=== PATIENT | male | born 1955 | race Asian ===

== ENCOUNTER 2017-11-08 12:56 | Inpatient (IN) | payer OTHER ==
[~2017-11-08] VITALS: Ht 182.9 cm; Wt 81.6 kg
[2017-11-08] VITALS (9 sets, daily range): BP systolic 119–162
--- NOTE | 2017-11-08 13:05 | NUR ---
BROUGHT BACK TO BED #4 VIA WHEELCHAIR, PLACED IN BED AND TRIAGED. REPORT GIVEN TO JAYDEN
--- NOTE | 2017-11-08 13:07 | NUR ---
ER Dr. Rudolph at bedside examining patient.
--- NOTE | 2017-11-08 13:10 | NUR ---
Pt presents to ER c/o abdominal pain 03/07, vomiting since last night, and gen weakness. Pt denies any chest pain or sob. Pt reports taking "78 units of insulin at noon time because dr prescribed that to me." Pt reports history of HTN, CVA, DM. Pt in no acute respiratory distress, lethargic, AOX4, NKDA.
[2017-11-08] MEDS ORDERED: NACL 0.9% 1,000 ML IV ONE ×2 (13:14→14:30)
[2017-11-08] MEDS ORDERED: NACL 0.9% 1,000 ML IV SCH (13:14)
[2017-11-08] MEDS ORDERED: PROMETHAZINE HCL 25 MG/ML AMP IVP ONE (13:15)
[2017-11-08 13:37] LABS: BASOPHILS % (AUTO) 0.2 % (0.0-2.0); HEMATOCRIT 44.9 % (36-54); HEMOGLOBIN 14.3 g/dL (14.0-18.0); MEAN CORPUSCULAR HEMOGLOBIN 26 pg (27-31); MEAN CORPUSCULAR HGB CONC 32 % (32-36); MEAN CORPUSCULAR VOLUME 82 fL (79.0-98.0); MONOCYTES # (AUTO) 0.3 K/uL (0.0-1.0); MONOCYTES % (AUTO) 3.1 % (1.7-9.3); NEUTROPHILS # (AUTO) 9.5 K/uL (1.8-7.7); PLATELET COUNT (AUTO) 242 K/uL (130-430); RED BLOOD CELL COUNT(AUTO) 5.51 MIL/uL (4.2-6.2); WHITE BLOOD COUNT (AUTO) 10.8 K/uL (4.8-10.8)
--- NOTE | 2017-11-08 13:43 | NUR ---
BS [address] Rudolph.
[2017-11-08 13:52] LABS: PROTHROMBIN TIME 10.4 SECS (9.5-12.5)
--- NOTE | 2017-11-08 13:53 | NUR ---
Pt medicated and toelrated well; will continue to monitor.
[2017-11-08 13:54] LABS: NEUTROPHILS % (AUTO) 87.7 % (40.0-70.0)
[2017-11-08 13:56] LABS: CALCIUM 10.5 mg/dL (8.4-11.0); CREATININE 2.82 mg/dL (0.55-1.30); POTASSIUM 4.5 mmol/L (3.5-5.1)
[2017-11-08 14:01] LABS: TOTAL BILIRUBIN 0.2 mg/dL (0.0-1.0)
[2017-11-08] MEDS ORDERED: CLOPIDOGREL BISULFATE 75 MG TABLET PO ONE (15:00)
[2017-11-08] MEDS ORDERED: ASPIRIN 325 MG TABLET PO ONE (15:00)
[2017-11-08] MEDS ORDERED: IRBE150T48 PO (15:05)
[2017-11-08] MEDS ORDERED: HYDR-4039 PO (15:05)
[2017-11-08] MEDS ORDERED: NIFE60TA83 PO (15:05)
[2017-11-08] MEDS ORDERED: CLOP75TA2 PO (15:05)
[2017-11-08] MEDS ORDERED: ASPI-1063 PO (15:05)
[2017-11-08] MEDS ORDERED: ISOS30TA6 PO (15:05)
--- NOTE | 2017-11-08 15:05 | NUR ---
Medication reconciliation completed with information provided by pt.
--- NOTE | 2017-11-08 15:59 | NUR ---
Pt resting comfortably on gurney, no distress noted, denies any pain at the moment just a little discomfort. VSS, will continue to monitor.
--- NOTE | 2017-11-08 16:45 | NUR ---
Note rene in ED - 11/08/17 at 1712 by [email or web address] Transfer to ICU via ACLS protocol. Licensed nurse present. IV present no signs or symptoms of infiltration.
--- NOTE | 2017-11-08 16:45 | NUR ---
Transfer to ICU via ACLS protocol. Licensed nurse present. IV present no signs or symptoms of infiltration.
--- NOTE | 2017-11-08 16:45 | NUR ---
Note rene in EDM - 11/08/17 at 1712 by [email or web address] Patient will be admitted to care of Dr. Barba. Admitted to ICU unit. Will go to room 7. Belongings list completed. Summary report printed. Report will be given at bedside.
--- NOTE | 2017-11-08 17:00 | NUR ---
RECEIVED PT TO ICU BED 7 VIA REE. PT ALERT AND ORIENTED. STATES PAIN 2-3/10 TO ABD. DENIES NAUSEA AND VOMITING. SR ON MONITOR. HOB UP. VOIDED 300 CC JACOB URINE. WILL CONTINUE TO MONITOR.
[2017-11-08] MEDS ORDERED: PANTOPRAZOLE SODIUM 40 MG/VIAL (PROTONIX) IVP SCH (18:15)
[2017-11-08] MEDS ORDERED: ONDANSETRON HCL 4 MG/2 ML VIAL IVP PRN (18:30)
[2017-11-08] MEDS ORDERED: TEMAZEPAM 15 MG CAPSULE PO PRN (18:30)
[2017-11-08] MEDS ORDERED: DEXTROSE 50% JECT 50 ML DISP.SYRIN IVP PRN (18:30)
--- NOTE | 2017-11-08 18:30 | NUR ---
DR PURVIS IN TO SEE PT. ORDERS LEFT.
[2017-11-08 18:33] LABS: BILIRUBIN,URINE NEGATIVE (NEGATIVE); CLARITY/URINE CLEAR (CLEAR); COLOR,URINE YELLOW (YELLOW); GLUCOSE,URINE TRACE (NEGATIVE); KETONES,URINE NEGATIVE (NEGATIVE); LEUKOCYTE ESTERASE ,URINE NEGATIVE (NEGATIVE); NITRITE, URINE NEGATIVE (NEGATIVE); PH,URINE 7.5 (5.0-8.0); PROTEIN URINE 3+ (NEGATIVE); UROBILINOGEN,URINE 0.2 (0.2-1.0)
[2017-11-08 18:36] LABS: BLOOD, URINE TRACE (NEGATIVE)
[2017-11-08 18:43] LABS: BACTERIA,URINE RARE /HPF (None Seen); MUCUS,URINE None Seen /LPF (None Seen); RBC,URINE 0-3 /HPF (0-3); WBC,URINE NONE SEEN /HPF (0-3)
--- NOTE | 2017-11-08 19:00 | NUR ---
REPORT GIVEN TO ONCOMING SHIFT. VSS. SR ON MONITOR. NO VOMITING. IVF INFUSING AT 300CC/HR. WILL CONTINUE TO MONITOR.
[2017-11-08] MEDS: 0.45% NACL 1,000 ML IV SCH ×2 (19:05→21:38)
--- NOTE | 2017-11-08 19:39 | NUR ---
CALLED CONSULTS FOR DR. DURANT([facility]), DR. HERNANDEZ AND DR. SUAZO.
--- NOTE | 2017-11-08 20:00 | NUR ---
notified with BMP results. no new orders received. Addendum: 11/09/17 at 0513 by Agustin Nieves RN BMP results called to at 0 not 1999.
--- NOTE | 2017-11-08 20:00 | NUR ---
pm shift assessment, pt AAO.denies any abd pain , nausea or vomiting. sinus rhythm on the monitor. Iv 1/2 NS infusing @ 300 ml/h to RT FA with no redness or swelling. SL intact on LT AC .site without redness or swelling. pt took po liquids and tolerated well.
--- NOTE | 2017-11-08 20:15 | NUR ---
called in to check on pt as per consultation order, orders received to do stat BMP and to call her with results.
[2017-11-08 21:00] LABS: CALCIUM 8.5 mg/dL (8.4-11.0); CREATININE 2.48 mg/dL (0.55-1.30); POTASSIUM 4.4 mmol/L (3.5-5.1)
--- NOTE | 2017-11-08 21:00 | NUR ---
came in to check on pt. orders given . IVF rate decreased to 150 ml/h as pt is voiding.sit at the side of bed to void. no complaints voiced.
[2017-11-08] MEDS ORDERED: TAMSULOSIN HCL 0.4 MG CAP ONE (21:17)
[2017-11-08] MEDS: TAMSULOSIN HCL 0.4 MG CAP PO SCH (21:18)
[2017-11-08] MEDS ORDERED: MORPHINE 4 MG/ML INJ. SYRINGE IVP PRN (21:45)
[2017-11-08] MEDS ORDERED: MORPHINE 2 MG/ML INJ. SYRINGE IVP PRN (21:45)
--- NOTE | 2017-11-08 22:59 | NUR ---
PAGED DR. WILL SANTORO FOR LAB RESULTS @ 5478.
[2017-11-09] VITALS (18 sets, daily range): BP systolic 111–154
[2017-11-09] MEDS: 0.45% NACL 1,000 ML IV SCH ×3 (03:03→18:22)
--- NOTE | 2017-11-09 04:00 | NUR ---
sleeping now .no distress noted.
--- NOTE | 2017-11-09 06:00 | NUR ---
voded well.no distress noted. had a good night without any problems.one thing he still has is blurred vision. Addendum: 11/09/17 at 0700 by Agustin Nieves RN voided well.
[2017-11-09 06:45] LABS: BASOPHILS % (AUTO) 0.5 % (0.0-2.0); EOSINOPHILS # (AUTO) 0.2 K/uL (0.0-0.4); HEMATOCRIT 38.8 % (36-54); HEMOGLOBIN 12.7 g/dL (14.0-18.0); LYMPHOCYTES # (AUTO) 1.8 K/uL (1.0-5.5); LYMPHOCYTES % (AUTO) 23.6 % (20.5-51.5); MEAN CORPUSCULAR HEMOGLOBIN 27 pg (27-31); MEAN CORPUSCULAR HGB CONC 33 % (32-36); MEAN CORPUSCULAR VOLUME 83 fL (79.0-98.0); MONOCYTES # (AUTO) 0.7 K/uL (0.0-1.0); MONOCYTES % (AUTO) 8.9 % (1.7-9.3); PLATELET COUNT (AUTO) 171 K/uL (130-430); RED BLOOD CELL COUNT(AUTO) 4.68 MIL/uL (4.2-6.2); RED CELL DISTRIBUTION WIDTH 14.1 % (9.0-15.0); WHITE BLOOD COUNT (AUTO) 7.7 K/uL (4.8-10.8)
--- NOTE | 2017-11-09 07:00 | NUR ---
report given to on coming RN
[2017-11-09 07:02] LABS: ALBUMIN 2.9 g/dL (3.4-4.8); CALCIUM 8.4 mg/dL (8.4-11.0); CREATININE 2.26 mg/dL (0.55-1.30); FREE T4 (FREE THYROXINE) 0.7 ng/dL (0.6-1.6); PHOSPHORUS 3.9 mg/dL (2.7-4.5); POTASSIUM 4.2 mmol/L (3.5-5.1); THYROID STIMULATING HORMONE 0.31 uIu/mL (0.34-4.82); TOTAL BILIRUBIN 0.3 mg/dL (0.0-1.0)
--- NOTE | 2017-11-09 07:15 | NUR ---
AM Assessment Received pt AAOx4, able to verbalize needs, ambulatory with steady gait. Pt states no pain or distress currently. Skin warm and dry. IV RFA 20G intact, patent, no infiltration noted with 1/2 NS at 150 ml/hr. IV SL LAC 18G intact, patent, no infiltration noted. Lungs clear to auscultation. Sinus rhythm on monitor, HR 70s. Bowel sounds present. Pulses present on all extremities bilaterally. Bed locked in lowest position. Call light in reach. SCDs in place. Will continue to monitor. Addendum: 11/09/17 at 1707 by Alis Zurita RN Pt also states his vision is blurry currently and has been blurry for a couple of months.
[2017-11-09] MEDS: NIFEDIPINE 60 MG TABLET.SA (PROCARDIA XL 60 MG) PO SCH (10:13)
[2017-11-09] MEDS: ISOSORBIDE MONONITRATE 30 MG TAB.ER.24H PO SCH (10:13)
[2017-11-09] MEDS: TAMSULOSIN HCL 0.4 MG CAP PO SCH (10:13)
[2017-11-09] MEDS: PANTOPRAZOLE SODIUM 40 MG TAB PO SCH ×2 (10:13→21:59)
--- NOTE | 2017-11-09 10:40 | NUR ---
Pt off unit to MRI with continuous monitoring accompanied by RN. Removed all jewelry and metal prior to transport.
--- NOTE | 2017-11-09 11:15 | NUR ---
Pt return to unit from MRI. Pt tolerated well. Situated pt to room and call light.
[2017-11-09 11:53] LABS: URINE SODIUM, RANDOM 105 mmol/L (40-220)
[2017-11-09] MEDS ORDERED: COMMUNICATION ORDER XX ONE ×2 (14:30→15:30)
--- NOTE | 2017-11-09 15:29 | NUR ---
Transfer to Telemetry Pt transfer via wheelchair and continuous monitoring to room 109C. Pt tolerated well. IV LAC and RFA intact, patent, no infiltration noted. Pt ambulate to bed with steady gait, states no pain or dizziness. All belongings sent with patient. Report and SBAR given to Berry KENNEDY.
--- NOTE | 2017-11-09 15:30 | NUR ---
ICU TRANSFER: RECEIVED PATENT FROM MAX, ICU NURSE. PATIENT ORIENTED TO ROOM AND CALL LIGHT. PATIENT SITTING ON BED. NO ACUTE SIGNS OF RESP DISTRESS, NO SOB. BREATHING EVEN AND UNLABORED. LUNG SOUNDS CLEAR. SKIN WARM DRY AND COLOR NORMAL FOR ETHNICITY. IV INTACT AND PATENT, NO REDNESS/SWELLING/PAIN TO SITE. IVF INFUSING WELL. EDUCATED PATIENT WITH PLAN OF CARE AND WHITE BOARD, PATIENT VERBALIZED UNDERSTANDING. BED AT LOWEST POSITION , CALL LIGHT IN REACH. ALL NEEDS MET AT THIS TIME. VITAL SIGNS WITHIN NORMAL LIMITS: TEMP - 98.1, BP - 130/96, HR - 79, O2 - 96%, RESPIRATIONS - 18, DENIES PAIN. DENIES NAUSEA/VOMITING. CONTINUE TO MONITOR.
[2017-11-09] MEDS: INSULIN REGULAR, HUMAN 100 UNITS/ML, 10 ML VIAL (novoLIN R) SUBCUT PRN (15:38)
--- NOTE | 2017-11-09 18:08 | NUR ---
CLOSING NOTE: PATIENT RESTING IN BED COMFORTABLY. AT BEDSIDE. PATIENT AWAKE AND ALERT. NO ACUTE SIGNS OF RESP DISTRESS, NO SOB. BREATHING EVEN AND UNLABORED. IV INTACT AND PATENT, NO REDNESS/SWELLING/PAIN TO SITE. DENIES PAIN AT THIS TIME. ALL NEEDS MET. WILL ENDORSE PLAN OF CARE TO NOC, NURSE.
--- NOTE | 2017-11-09 20:40 | NUR ---
PATIENT awake alert assist out of bed to rest room , on room air 02 SAT 96 % PT verbally indicative Telemetry NSR HR 82 - 88 bpm procedures explained / .
--- NOTE | 2017-11-09 22:00 | NUR ---
BSG @ 145 mg dl no insulin required per MD sliding scale , patient ambulating in room no SOB noted activity tolerated no complaints made .
--- NOTE | 2017-11-09 23:31 | NUR ---
PATIENT to be NPO @ midnight for AM procedure HIDA SCAN , PATIENT ALERT & AWARE .
--- NOTE | 2017-11-10 02:13 | NUR ---
Hourly Rounding patient resting , HOB elevated light is on , safety measures implemented fall measures effective / .
--- NOTE | 2017-11-10 05:33 | NUR ---
Patient resting HOB elevated , able to self re - position call lorenzo w/ patient bed to low position chest movement symmetrical .
[2017-11-10] MEDS: 0.45% NACL 1,000 ML IV SCH ×2 (06:25→17:26)
[2017-11-10 07:16] LABS: BASOPHILS # (AUTO) 0.1 K/uL (0.0-0.2); BASOPHILS % (AUTO) 0.6 % (0.0-2.0); EOSINOPHILS # (AUTO) 0.5 K/uL (0.0-0.4); EOSINOPHILS % (AUTO) 5.3 % (0.0-4.0); HEMATOCRIT 44.1 % (36-54); HEMOGLOBIN 13.9 g/dL (14.0-18.0); LYMPHOCYTES # (AUTO) 2.5 K/uL (1.0-5.5); LYMPHOCYTES % (AUTO) 26.6 % (20.5-51.5); MEAN CORPUSCULAR HEMOGLOBIN 26 pg (27-31); MEAN CORPUSCULAR HGB CONC 32 % (32-36); MEAN CORPUSCULAR VOLUME 83 fL (79.0-98.0); MONOCYTES # (AUTO) 0.8 K/uL (0.0-1.0); MONOCYTES % (AUTO) 8.3 % (1.7-9.3); NEUTROPHILS # (AUTO) 5.5 K/uL (1.8-7.7); NEUTROPHILS % (AUTO) 59.2 % (40.0-70.0); PLATELET COUNT (AUTO) 222 K/uL (130-430); RED BLOOD CELL COUNT(AUTO) 5.33 MIL/uL (4.2-6.2); RED CELL DISTRIBUTION WIDTH 14.3 % (9.0-15.0); WHITE BLOOD COUNT (AUTO) 9.4 K/uL (4.8-10.8)
[2017-11-10 07:35] LABS: CALCIUM 9.3 mg/dL (8.4-11.0); CREATININE 2.18 mg/dL (0.55-1.30); POTASSIUM 4.2 mmol/L (3.5-5.1)
[2017-11-10 08:10] VITALS: BP_SYST 140
--- NOTE | 2017-11-10 08:10 | NUR ---
OPENING NOTE LATE ENTRY DUE TO PT CARE: REPORT IS RECEIVED FROM INSTRUCTIONAL TECHNOLOGY INSTRUCTOR NURSE AND CARE IS ENDORSED OVER TO MYSELF. PT IS RECEIVED AWAKE, ALERT, AND ORIENTED X4. PT DENIES ANY PAIN. VS ARE STABLE AND WNL. PT IS NPO FOR HIDA SCAN THIS MORNING. PT HAS RIGHT FOREARM 20G WITH 1.2NS RUNNING AT 80. WHITE BOARD IS UPDATED WITH TODAY'S INFORMATION. UPDATE PT ON PLAN FOR TODAY. BED IS AT LOWEST POSITION, CALL LIGHT WITHIN REACH. TWO SIDE RAILS UP. WILL CONTINUE TO MONITOR. Addendum: 11/10/17 at 0955 by Anna Ann RN FLUIDS ARE 0.45% NS @80ML/HR
--- NOTE | 2017-11-10 08:30 | NUR ---
PT TAKEN TO HIDA SCAN BRITTANY FROM RADIOLOGY CAN TO TAKE PT FOR PROCEDURE. PT WAS SALINE LOCKED AND TELE REMOVED FOR PROCEDURE. WILL CONTINUE TO MONITOR UPON RETURN.
--- NOTE | 2017-11-10 09:54 | NUR ---
FLUIDS ARE 0.45% NS @80ML/HR
--- NOTE | 2017-11-10 10:04 | NUR ---
ROUNDS PT WAS BROUGHT BACK FROM HIDA SCAN. HIDA SCAN IS COMPLETE. DIET WAS UPDATED. PT STATES HE IS HUNGRY AND THIRSTY. WATER BROUGHT AND FOOD WILL BE ORDERED. BED IS AT LOWEST POSITION, CALL LIGHT WITHIN REACH, TWO SIDE RAILS UP. WILL CONTINUE TO MONITOR.
[2017-11-10] MEDS: NIFEDIPINE 60 MG TABLET.SA (PROCARDIA XL 60 MG) PO SCH (10:14)
[2017-11-10] MEDS: ISOSORBIDE MONONITRATE 30 MG TAB.ER.24H PO SCH (10:14)
[2017-11-10] MEDS: TAMSULOSIN HCL 0.4 MG CAP PO SCH (10:14)
[2017-11-10] MEDS: PANTOPRAZOLE SODIUM 40 MG TAB PO SCH (10:15)
--- NOTE | 2017-11-10 10:16 | NUR ---
GAVE MORNING MEDICATION MEDICATIONS WERE GIVEN LATE DUE TO PT BEING NPO AND AT HIDA SCAN. HIDA SCAN IS COMPLETE. MEDICATIONS TAKEN AND TOLERATED WELL.
--- NOTE | 2017-11-10 11:23 | NUR ---
Dietitian Recommendations 1. Remain NPO until medically able to advance. 2. Advance as tolerated to goal of GI soft, CCHO. 3. Monitor high risk for diet advancement/tolerance, GI status, weight, labs, plan of care. Please see RD assessment for further information. ELIZABETH, LINDSAY
[2017-11-10 11:39] VITALS: BP_SYST 147
[2017-11-10] MEDS: INSULIN REGULAR, HUMAN 100 UNITS/ML, 10 ML VIAL (novoLIN R) SUBCUT PRN (11:51)
--- NOTE | 2017-11-10 12:34 | NUR ---
ROUNDS PT IS AWAKE AND ALERT, WATCHING TV. NO SIGNS OR SYMPTOMS OF DISTRESS OR SOB NOTED. INSULIN COVERAGE WAS GIVEN PER SLIDING SCALE. IV TUBING WAS CHANGED AND LABELED. CURRENT NEEDS ARE MET. BED IS AT LOWEST POSITION, CALL LIGHT WITHIN REACH, TWO SIDE RAILS UP. WILL CONTINUE TO MONITOR.
[2017-11-10 13:08] LABS: % FREE PSA 8.7 % (.); FREE PSA 0.74 ng/mL
--- NOTE | 2017-11-10 14:04 | NUR ---
ROUNDS PT IS AWAKE AND ALERT, WATCHING TV. NO SIGNS OR SYMPTOMS OF DISTRESS OR SOB NOTED. PT DENIES ANY PAIN. CURRENT NEEDS ARE MET. BED IS AT LOWEST POSITION, CALL LIGHT WITHIN REACH, TWO SIDE RAILS UP. WILL CONTINUE TO MONITOR.
[2017-11-10 14:06] LABS: PROSTATE SPECIFIC AG TOTAL 8.5 ng/mL (0.0-4.0)
[2017-11-10 15:34] VITALS: BP_SYST 127
--- NOTE | 2017-11-10 16:31 | NUR ---
ROUNDS PT IS AWAKE AND ALERT SITTING ON A CHAIR LOOKING OUTSIDE. NO SIGNS OR SYMPTOMS OF DISTRESS OR SOB NOTED. PT DENIES ANY PAIN. WAS AT BEDSIDE BRIEFLY AND UPDATED ON PLAN OF CARE. CURRENT NEEDS ARE MET.CALL LIGHT ANNY CHANG, PT WAS ADVISED TO CALL NURSE SHOULD HE NEED ASSISTANCE BACK TO BED. WILL CONTINUE TO MONITOR.
[2017-11-10] MEDS ORDERED: TAMS0.4C96 PO (18:02)
[2017-11-10 18:17] VITALS: BP_SYST 146
--- NOTE | 2017-11-10 18:58 | NUR ---
D/C Patient Patient given medication reconciliation form and D/C instructions. Exit Care provided. Patient verbalized understanding. MD discussed with patient the results and treatment provided. Ambulatory with steady gait for discharge to home. Patient in stable condition, ID band removed. IV catheter removed, intact and dressing applied, no active bleeding. Rx of FLOMAX given. Patient educated on pain management. All belongings sent with patient.
== END 2017-11-10 19:08 | disposition home or self-care (01) | DRG 438 ==
LOC: SED 12:56 → SIC 14:50 → STU 11-09 15:28
PROVIDERS: ADMIT Internal Medicine; ATTEND Internal Medicine
DX: K85.90 Acute pancreatitis without necrosis or infection, unspecified (principal); N17.0 Acute kidney failure with tubular necrosis; E11.22 Type 2 diabetes mellitus with diabetic chronic kidney disease; N18.3 Chronic kidney disease, stage 3 (moderate); N28.1 Cyst of kidney, acquired; E78.5 Hyperlipidemia, unspecified; E86.0 Dehydration; K29.20 Alcoholic gastritis without bleeding; I25.10 Atherosclerotic heart disease of native coronary artery without angina pectoris; N40.1 Benign prostatic hyperplasia with lower urinary tract symptoms; I12.9 Hypertensive chronic kidney disease with stage 1 through stage 4 chronic kidney disease, or unspecified chronic kidney disease; Z86.73 Personal history of transient ischemic attack (TIA), and cerebral infarction without residual deficits; Z79.02 Long term (current) use of antithrombotics/antiplatelets; Z79.82 Long term (current) use of aspirin; Z79.899 Other long term (current) drug therapy; Z83.3 Family history of diabetes mellitus; Z82.49 Family history of ischemic heart disease and other diseases of the circulatory system; Z82.3 Family history of stroke
CPT/HCPCS: 36415; 70551; 71045; 76700-TC; 78226; 80048; 80053; 80061; 81000-TC; 82150-TC; 82550-TC; 82570-TC; 82962; 83036; 83605; 83690-TC; 84100-TC; 84153; 84302-TC; 84439; 84443-TC; 84484; 85025; 85610-TC; 85730-TC; 87040-TC; 87081; 93005; 93306; 96361; 96374; 99285; A9537; J1815; J2550; J7030

== ENCOUNTER 2018-12-14 08:34 | Outpatient (CLI) | payer OTHER ==
[~2018-12-14 08:34] MED LIST: ASPI-1153 PO; CLOP75TA2 PO; HYDR-4039 PO; ISOS30TA6 PO; NIFE60TA83 PO; TAMS0.4C96 PO
[2018-12-14 10:07] LABS: EOSINOPHILS % (AUTO) 3.7 % (0.0-4.0); HEMATOCRIT 40.8 % (36-54); HEMOGLOBIN 13.1 g/dL (14.0-18.0); LYMPHOCYTES % (AUTO) 26.3 % (20.5-51.5); MEAN CORPUSCULAR HEMOGLOBIN 28 pg (27-31); MEAN CORPUSCULAR HGB CONC 32 % (32-36); MEAN CORPUSCULAR VOLUME 86 fL (79.0-98.0); MONOCYTES % (AUTO) 7.7 % (1.7-9.3); NEUTROPHILS % (AUTO) 61.7 % (40.0-70.0); PLATELET COUNT (AUTO) 215 K/uL (130-430); RED BLOOD CELL COUNT(AUTO) 4.72 MIL/uL (4.2-6.2); RED CELL DISTRIBUTION WIDTH 13.9 % (9.0-15.0); WHITE BLOOD COUNT (AUTO) 7.4 K/uL (4.8-10.8)
[2018-12-14 10:08] LABS: BASOPHILS % (AUTO) 0.6 % (0.0-2.0); EOSINOPHILS # (AUTO) 0.3 K/uL (0.0-0.4); LYMPHOCYTES # (AUTO) 1.9 K/uL (1.0-5.5); MONOCYTES # (AUTO) 0.6 K/uL (0.0-1.0); NEUTROPHILS # (AUTO) 4.5 K/uL (1.8-7.7)
[2018-12-14 10:33] LABS: ALBUMIN 3.2 g/dL (3.4-4.8); CALCIUM 8.3 mg/dL (8.4-11.0); CREATININE 3.71 mg/dL (0.55-1.30); PHOSPHORUS 4.3 mg/dL (2.7-4.5); POTASSIUM 4.4 mmol/L (3.5-5.1); THYROID STIMULATING HORMONE 0.96 uIu/mL (0.34-4.82); TOTAL BILIRUBIN 0.2 mg/dL (0.0-1.0); URIC ACID 7.9 mg/dL (2.4-7.0)
[2018-12-14 10:35] LABS: BILIRUBIN,URINE NEGATIVE (NEGATIVE); CLARITY/URINE CLEAR (CLEAR); COLOR,URINE YELLOW (YELLOW); GLUCOSE,URINE NEGATIVE (NEGATIVE); KETONES,URINE NEGATIVE (NEGATIVE); LEUKOCYTE ESTERASE ,URINE NEGATIVE (NEGATIVE); NITRITE, URINE NEGATIVE (NEGATIVE); PH,URINE 5.5 (5.0-8.0); PROTEIN URINE 3+ (NEGATIVE); UROBILINOGEN,URINE 0.2 (0.2-1.0)
[2018-12-14 10:37] LABS: BLOOD, URINE TRACE (NEGATIVE)
[2018-12-14 10:55] LABS: BACTERIA,URINE FEW /HPF (None Seen); MUCUS,URINE None Seen /LPF (None Seen); WBC,URINE 0-3 /HPF (0-3); YEAST,URINE None Seen /HPF (None Seen)
[2018-12-16 15:03] LABS: HEMOGLOBIN A1C 6.3 % (4.8-5.6)
[2018-12-16 15:05] LABS: PROSTATE SPECIFIC AG 14.9 ng/mL (0.0-4.0)
== END 2018-12-14 21:17 | disposition home or self-care (01) ==
LOC: SUS 08:34
PROVIDERS: ATTEND Internal Medicine
DX: N20.0 Calculus of kidney (principal); E11.9 Type 2 diabetes mellitus without complications; I10 Essential (primary) hypertension
CPT/HCPCS: 36415; 76700-TC; 80053; 80061; 81000-TC; 83036; 84100-TC; 84153; 84443-TC; 84550-TC; 85025

== ENCOUNTER 2019-05-17 07:06 | Outpatient (CLI) | payer OTHER ==
[2019-03-14 08:49] LABS: ALBUMIN 3.4 g/dL (3.4-4.8); CALCIUM 9.1 mg/dL (8.4-11.0); CREATININE 3.75 mg/dL (0.55-1.30); TOTAL BILIRUBIN 0.2 mg/dL (0.0-1.0)
[2019-03-15 07:58] LABS: BILIRUBIN,URINE NEGATIVE (NEGATIVE); BLOOD, URINE NEGATIVE (NEGATIVE); CLARITY/URINE CLEAR (CLEAR); COLOR,URINE YELLOW (YELLOW); GLUCOSE,URINE NEGATIVE (NEGATIVE); KETONES,URINE NEGATIVE (NEGATIVE); LEUKOCYTE ESTERASE ,URINE NEGATIVE (NEGATIVE); NITRITE, URINE NEGATIVE (NEGATIVE); PH,URINE 5.5 (5.0-8.0); PROTEIN URINE 2+ (NEGATIVE); UROBILINOGEN,URINE 0.2 (0.2-1.0)
[2019-03-15 08:24] LABS: BACTERIA,URINE FEW /HPF (None Seen); MUCUS,URINE None Seen /LPF (None Seen); RBC,URINE 0-3 /HPF (0-3); WBC,URINE 0-3 /HPF (0-3)
[2019-03-17 14:11] LABS: CREATININE,URINE 58.9 MG/DL (30-125)
[2019-03-17 14:12] LABS: TPROTEIN U,24HR 7194.6 mg/24HR (0-130)
[2019-05-17 07:37] LABS: BASOPHILS % (AUTO) 0.7 % (0.0-2.0); EOSINOPHILS # (AUTO) 0.3 K/uL (0.0-0.4); EOSINOPHILS % (AUTO) 4.1 % (0.0-4.0); HEMATOCRIT 35.7 % (36-54); HEMOGLOBIN 11.5 g/dL (14.0-18.0); LYMPHOCYTES # (AUTO) 1.8 K/uL (1.0-5.5); LYMPHOCYTES % (AUTO) 25.8 % (20.5-51.5); MEAN CORPUSCULAR HEMOGLOBIN 28 pg (27-31); MEAN CORPUSCULAR HGB CONC 32 % (32-36); MEAN CORPUSCULAR VOLUME 87 fL (79.0-98.0); MONOCYTES # (AUTO) 0.7 K/uL (0.0-1.0); MONOCYTES % (AUTO) 9.4 % (1.7-9.3); NEUTROPHILS # (AUTO) 4.3 K/uL (1.8-7.7); PLATELET COUNT (AUTO) 198 K/uL (130-430); RED BLOOD CELL COUNT(AUTO) 4.09 MIL/uL (4.2-6.2); WHITE BLOOD COUNT (AUTO) 7.1 K/uL (4.8-10.8)
[2019-05-17 07:42] LABS: BILIRUBIN,URINE NEGATIVE (NEGATIVE); BLOOD, URINE TRACE (NEGATIVE); CLARITY/URINE CLEAR (CLEAR); COLOR,URINE YELLOW (YELLOW); GLUCOSE,URINE NEGATIVE (NEGATIVE); KETONES,URINE NEGATIVE (NEGATIVE); LEUKOCYTE ESTERASE ,URINE NEGATIVE (NEGATIVE); NITRITE, URINE NEGATIVE (NEGATIVE); PH,URINE 5.5 (5.0-8.0); PROTEIN URINE 3+ (NEGATIVE); UROBILINOGEN,URINE 0.2 (0.2-1.0)
[2019-05-17 07:48] LABS: BACTERIA,URINE FEW /HPF (None Seen); RBC,URINE 0-3 /HPF (0-3); WBC,URINE 0-3 /HPF (0-3)
[2019-05-17 07:56] LABS: ALBUMIN 2.9 g/dL (3.4-4.8); CALCIUM 8.3 mg/dL (8.4-11.0); CREATININE 4.45 mg/dL (0.55-1.30); POTASSIUM 5.1 mmol/L (3.5-5.1); TOTAL BILIRUBIN 0.2 mg/dL (0.0-1.0)
== END 2019-05-17 20:53 | disposition home or self-care (01) ==
LOC: SLB 07:06
PROVIDERS: ATTEND Internal Medicine
DX: I12.9 Hypertensive chronic kidney disease with stage 1 through stage 4 chronic kidney disease, or unspecified chronic kidney disease (principal); E11.22 Type 2 diabetes mellitus with diabetic chronic kidney disease; N18.4 Chronic kidney disease, stage 4 (severe)
CPT/HCPCS: 36415; 80053; 81000-TC; 82570; 84156; 85025

== ENCOUNTER 2019-06-22 07:04 | Outpatient (CLI) | payer OTHER ==
[2019-06-22 08:08] LABS: BASOPHILS # (AUTO) 0.1 K/uL (0.0-0.2); BASOPHILS % (AUTO) 0.8 % (0.0-2.0); EOSINOPHILS # (AUTO) 0.3 K/uL (0.0-0.4); EOSINOPHILS % (AUTO) 4.3 % (0.0-4.0); HEMOGLOBIN 12.4 g/dL (14.0-18.0); LYMPHOCYTES # (AUTO) 1.9 K/uL (1.0-5.5); LYMPHOCYTES % (AUTO) 24.6 % (20.5-51.5); MEAN CORPUSCULAR HEMOGLOBIN 28 pg (27-31); MEAN CORPUSCULAR HGB CONC 33 % (32-36); MEAN CORPUSCULAR VOLUME 87 fL (79.0-98.0); MONOCYTES # (AUTO) 0.5 K/uL (0.0-1.0); MONOCYTES % (AUTO) 6.6 % (1.7-9.3); NEUTROPHILS # (AUTO) 4.9 K/uL (1.8-7.7); NEUTROPHILS % (AUTO) 63.7 % (40.0-70.0); PLATELET COUNT (AUTO) 210 K/uL (130-430); RED BLOOD CELL COUNT(AUTO) 4.37 MIL/uL (4.2-6.2); RED CELL DISTRIBUTION WIDTH 13.4 % (9.0-15.0); WHITE BLOOD COUNT (AUTO) 7.7 K/uL (4.8-10.8)
[2019-06-22 08:18] LABS: BILIRUBIN,URINE NEGATIVE (NEGATIVE); CLARITY/URINE CLEAR (CLEAR); COLOR,URINE YELLOW (YELLOW); GLUCOSE,URINE NEGATIVE (NEGATIVE); KETONES,URINE NEGATIVE (NEGATIVE); LEUKOCYTE ESTERASE ,URINE NEGATIVE (NEGATIVE); NITRITE, URINE NEGATIVE (NEGATIVE); PH,URINE 5.5 (5.0-8.0); PROTEIN URINE 3+ (NEGATIVE); UROBILINOGEN,URINE 0.2 (0.2-1.0)
[2019-06-22 08:21] LABS: BLOOD, URINE TRACE (NEGATIVE)
[2019-06-22 08:24] LABS: ALBUMIN 3.4 g/dL (3.4-4.8); CREATININE 4.29 mg/dL (0.55-1.30); POTASSIUM 5.4 mmol/L (3.5-5.1); TOTAL BILIRUBIN 0.2 mg/dL (0.0-1.0)
[2019-06-22 08:47] LABS: BACTERIA,URINE FEW /HPF (None Seen); WBC,URINE 0-3 /HPF (0-3)
[2019-06-23 07:06] LABS: HEPATITIS A AB, IgM Negative (Negative); HEPATITIS B CORE AB, TOTAL Negative (Negative); HEPATITIS B SURFACE AG Negative (Negative); HEPATITIS C VIRUS AB <0.1 s/co ratio (0.0-0.9)
[2019-06-25 14:49] LABS: PTH, INTACT 147 pg/mL (15-65)
[2019-06-27 20:10] LABS: HEPATITIS B SURFACE AG Negative (Negative); HEPATITIS Be AG Negative
[2019-06-27 20:11] LABS: HEPATITIS B CORE AB, IgM Negative (Negative); HEPATITIS B CORE AB, TOTAL Negative (NEGATIVE); HEPATITIS Be AB Negative
== END 2019-06-22 21:07 | disposition home or self-care (01) ==
LOC: SLB 07:04
PROVIDERS: ATTEND Internal Medicine
DX: N18.3 Chronic kidney disease, stage 3 (moderate) (principal)
CPT/HCPCS: 36415; 80053; 81000-TC; 82306; 83970; 85025; 86704; 86705; 86706; 86707; 86709; 86803; 87340; 87350

== ENCOUNTER 2019-08-11 09:43 | Outpatient (CLI) | payer OTHER ==
[2019-08-11 10:55] LABS: BASOPHILS % (AUTO) 0.6 % (0.0-2.0); EOSINOPHILS # (AUTO) 0.2 K/uL (0.0-0.4); EOSINOPHILS % (AUTO) 1.9 % (0.0-4.0); LYMPHOCYTES # (AUTO) 1.8 K/uL (1.0-5.5); LYMPHOCYTES % (AUTO) 22.9 % (20.5-51.5); MEAN CORPUSCULAR HEMOGLOBIN 29 pg (27-31); MEAN CORPUSCULAR HGB CONC 32 % (32-36); MEAN CORPUSCULAR VOLUME 89 fL (79.0-98.0); MONOCYTES # (AUTO) 0.6 K/uL (0.0-1.0); MONOCYTES % (AUTO) 7.8 % (1.7-9.3); NEUTROPHILS # (AUTO) 5.2 K/uL (1.8-7.7); NEUTROPHILS % (AUTO) 66.8 % (40.0-70.0); PLATELET COUNT (AUTO) 211 K/uL (130-430); RED BLOOD CELL COUNT(AUTO) 4.16 MIL/uL (4.2-6.2); RED CELL DISTRIBUTION WIDTH 13.7 % (9.0-15.0); WHITE BLOOD COUNT (AUTO) 7.7 K/uL (4.8-10.8)
[2019-08-11 11:12] LABS: ALBUMIN 3.2 g/dL (3.4-4.8); CALCIUM 8.5 mg/dL (8.4-11.0); CREATININE 4.73 mg/dL (0.55-1.30); POTASSIUM 5.2 mmol/L (3.5-5.1); TOTAL BILIRUBIN 0.3 mg/dL (0.0-1.0)
== END 2019-08-11 21:10 | disposition home or self-care (01) ==
LOC: SLB 09:43
PROVIDERS: ATTEND Internal Medicine
DX: I12.9 Hypertensive chronic kidney disease with stage 1 through stage 4 chronic kidney disease, or unspecified chronic kidney disease (principal); E11.22 Type 2 diabetes mellitus with diabetic chronic kidney disease; N18.4 Chronic kidney disease, stage 4 (severe)
CPT/HCPCS: 36415; 80053; 85025

== ENCOUNTER 2019-10-11 07:05 | Outpatient (CLI) | payer OTHER ==
[2019-10-11 07:54] LABS: BASOPHILS # (AUTO) 0.1 K/uL (0.0-0.2); BASOPHILS % (AUTO) 0.9 % (0.0-2.0); EOSINOPHILS # (AUTO) 0.3 K/uL (0.0-0.4); EOSINOPHILS % (AUTO) 3.1 % (0.0-4.0); HEMATOCRIT 35.9 % (36-54); HEMOGLOBIN 11.9 g/dL (14.0-18.0); LYMPHOCYTES # (AUTO) 2.2 K/uL (1.0-5.5); LYMPHOCYTES % (AUTO) 22.9 % (20.5-51.5); MEAN CORPUSCULAR HEMOGLOBIN 29 pg (27-31); MEAN CORPUSCULAR HGB CONC 33 % (32-36); MEAN CORPUSCULAR VOLUME 88 fL (79.0-98.0); MONOCYTES # (AUTO) 0.7 K/uL (0.0-1.0); MONOCYTES % (AUTO) 7.7 % (1.7-9.3); NEUTROPHILS # (AUTO) 6.2 K/uL (1.8-7.7); NEUTROPHILS % (AUTO) 65.4 % (40.0-70.0); PLATELET COUNT (AUTO) 197 K/uL (130-430); RED BLOOD CELL COUNT(AUTO) 4.07 MIL/uL (4.2-6.2); RED CELL DISTRIBUTION WIDTH 13.3 % (9.0-15.0); WHITE BLOOD COUNT (AUTO) 9.4 K/uL (4.8-10.8)
[2019-10-11 08:32] LABS: ALBUMIN 3.6 g/dL (3.4-4.8); CALCIUM 8.6 mg/dL (8.4-11.0); CREATININE 5.14 mg/dL (0.55-1.30); POTASSIUM 4.9 mmol/L (3.5-5.1); TOTAL BILIRUBIN 0.2 mg/dL (0.0-1.0)
== END 2019-10-11 19:20 | disposition home or self-care (01) ==
LOC: SLB 07:05
PROVIDERS: ATTEND Internal Medicine
DX: N18.4 Chronic kidney disease, stage 4 (severe) (principal)
CPT/HCPCS: 36415; 80053; 85025

== ENCOUNTER 2019-11-14 09:32 | Outpatient (CLI) | payer OTHER ==
[2019-11-14 10:39] LABS: BASOPHILS # (AUTO) 0.1 K/uL (0.0-0.2); BASOPHILS % (AUTO) 0.7 % (0.0-2.0); EOSINOPHILS # (AUTO) 0.4 K/uL (0.0-0.4); EOSINOPHILS % (AUTO) 5.2 % (0.0-4.0); HEMATOCRIT 36.6 % (36-54); HEMOGLOBIN 11.7 g/dL (14.0-18.0); LYMPHOCYTES # (AUTO) 1.4 K/uL (1.0-5.5); LYMPHOCYTES % (AUTO) 19.6 % (20.5-51.5); MEAN CORPUSCULAR HEMOGLOBIN 28 pg (27-31); MEAN CORPUSCULAR HGB CONC 32 % (32-36); MEAN CORPUSCULAR VOLUME 88 fL (79.0-98.0); MONOCYTES # (AUTO) 0.6 K/uL (0.0-1.0); MONOCYTES % (AUTO) 8.1 % (1.7-9.3); NEUTROPHILS # (AUTO) 4.9 K/uL (1.8-7.7); NEUTROPHILS % (AUTO) 66.4 % (40.0-70.0); PLATELET COUNT (AUTO) 206 K/uL (130-430); RED BLOOD CELL COUNT(AUTO) 4.14 MIL/uL (4.2-6.2); RED CELL DISTRIBUTION WIDTH 13.4 % (9.0-15.0); WHITE BLOOD COUNT (AUTO) 7.3 K/uL (4.8-10.8)
[2019-11-14 11:50] LABS: CREATININE 4.79 mg/dL (0.55-1.30); TOTAL BILIRUBIN 0.3 mg/dL (0.0-1.0)
[2019-11-14 11:51] LABS: ALBUMIN 3.4 g/dL (3.4-4.8); THYROID STIMULATING HORMONE 1.57 uIu/mL (0.36-3.74); URIC ACID 7.5 mg/dL (2.4-7.0)
[2019-11-14] MEDS ORDERED: IRBE150T48 PO (18:24)
[2019-11-14] MEDS ORDERED: HYDR-4039 PO (18:24)
[2019-11-14] MEDS ORDERED: LIP40 PO (18:24)
[2019-11-14] MEDS ORDERED: METO50TA7 PO (18:24)
[2019-11-14] MEDS ORDERED: PROXL60 PO (18:24)
[2019-11-14] MEDS ORDERED: CLOP75TA32 PO (18:24)
[2019-11-14] MEDS ORDERED: SPIR25TA6 PO (18:24)
[2019-11-15 17:21] LABS: HEMOGLOBIN A1C 6.1 % (4.8-5.6)
== END 2019-11-14 20:16 | disposition home or self-care (01) ==
LOC: SLB 09:32
PROVIDERS: ATTEND Internal Medicine
DX: E11.22 Type 2 diabetes mellitus with diabetic chronic kidney disease (principal); N18.4 Chronic kidney disease, stage 4 (severe); E11.65 Type 2 diabetes mellitus with hyperglycemia; E11.21 Type 2 diabetes mellitus with diabetic nephropathy; E78.5 Hyperlipidemia, unspecified; D63.1 Anemia in chronic kidney disease
CPT/HCPCS: 36415; 80053; 80061; 82306; 82607; 83036; 83970; 84100; 84443; 84550; 85025; J7050; J7040; J7060

== ENCOUNTER 2019-11-14 12:20 | Inpatient (IN) | payer OTHER ==
[~2019-11-14] VITALS: Ht 172.7 cm; Wt 87.5 kg
[~2019-11-14 12:20] MED LIST changes: +CEFAZOLIN 2 GM IVPB PREMIX 50 ML IV ONE; +HEPARIN SODIUM,PORCINE 5000 UNITS/ML VIAL SUBCUT ONE; +LIDOCAINE 1% 10 MG/ML, 20 ML MDV INJ ONE; +MIDAZOLAM HCL 5 MG/5 ML VIAL IVP ONE; +NS 1000 ML IV.SOLN IV ONE; +NS 50 ML BAG IV ONE; +PROPOFOL 200MG/ 20ML VIAL (DIPRIVAN) IV ONE; +WATER FOR IRRIGATION,STERILE 1,000 ML IRRIG.SOLN IR ONE; +fentaNYL CITRATE/PF 100 MCG/2 ML AMP IVP ONE
[2019-11-14 12:29] VITALS: BP_SYST 159
--- NOTE | 2019-11-14 12:34 | NUR ---
Patient triaged and placed in waiting room. VSS and patient appears in no acute distress at this time. Accompanied by , awaiting available bed, and MD notified of need for MSE.
--- NOTE | 2019-11-14 12:40 | NUR ---
Patient to ER bed [] to gown for evaluation. Side rails up. Report given to [].
--- NOTE | 2019-11-14 12:40 | NUR ---
Placed in room 7 . Placed on surveillance monitor, blood pressure machine and pulse oximeter. To gown for exam. Side rails up. Report given to Moriah KENNEDY..
--- NOTE | 2019-11-14 12:42 | NUR ---
Patient arrived in the ED for abnormal labs, was instructed by Dr. Barba to come in for elevated Potassium. Denied any chest pain or shortness of breath. Denied any fevers, nausea, vomiting, or chills. Patient is alert and oriented x4, respirations even and unlabored, speaking in full sentences, ambulating with a steady gait. VSS, pain level 0/10. at bedside. Informed of wait time. Instructed to notify ED staff for any changes in condition or worsening of symptoms. Patient verbalized understanding.
--- NOTE | 2019-11-14 12:54 | NUR ---
ER at bedside examining patient.
[2019-11-14] MEDS ORDERED: CALCIUM GLUCONATE 1 GM in NS 100 ML IV ONE (13:00)
[2019-11-14] MEDS ORDERED: SODIUM ZIRCONIUM CYCLOSILICATE 10 GM POWD.PACK PO ONE (13:00)
[2019-11-14] MEDS ORDERED: SODIUM BICARBONATE 8.4% JECT 50 MEQ/50 ML SYRINGE IVP ONE (13:00)
--- NOTE | 2019-11-14 13:04 | NUR ---
ECG done at bedside as ordered by Dr. Fry. Patient tolerated the procedure well. Report given to .
--- NOTE | 2019-11-14 13:20 | NUR ---
# 20 gauge angiocath placed to RFA. Use of asceptic technique. Opsite placed over site. Blood return noted. Blood for lab drawn from site. Flushed with 10 cc of normal saline. No evidence of infiltration noted. Patient tolerated well.
[2019-11-14 13:28] LABS: BASOPHILS # (AUTO) 0.1 K/uL (0.0-0.2); BASOPHILS % (AUTO) 0.8 % (0.0-2.0); EOSINOPHILS # (AUTO) 0.3 K/uL (0.0-0.4); HEMATOCRIT 33.6 % (36-54); HEMOGLOBIN 10.8 g/dL (14.0-18.0); LYMPHOCYTES % (AUTO) 14.5 % (20.5-51.5); MEAN CORPUSCULAR HEMOGLOBIN 29 pg (27-31); MEAN CORPUSCULAR HGB CONC 32 % (32-36); MEAN CORPUSCULAR VOLUME 89 fL (79.0-98.0); MONOCYTES # (AUTO) 0.4 K/uL (0.0-1.0); NEUTROPHILS # (AUTO) 5.2 K/uL (1.8-7.7); NEUTROPHILS % (AUTO) 74.7 % (40.0-70.0); PLATELET COUNT (AUTO) 191 K/uL (130-430); RED BLOOD CELL COUNT(AUTO) 3.77 MIL/uL (4.2-6.2); RED CELL DISTRIBUTION WIDTH 13.4 % (9.0-15.0)
--- NOTE | 2019-11-14 13:28 | NUR ---
Patient ambulated to restroom.
--- NOTE | 2019-11-14 13:32 | NUR ---
Returned from [facility], back to [facility].
[2019-11-14 13:42] LABS: CALCIUM 8.6 mg/dL (8.4-11.0); CREATININE 4.73 mg/dL (0.55-1.30)
[2019-11-14 13:46] LABS: PROTHROMBIN TIME 10.4 SECS (9.5-12.5)
[2019-11-14 13:50] LABS: TOTAL BILIRUBIN 0.2 mg/dL (0.0-1.0)
[2019-11-14 13:53] LABS: POTASSIUM 6.3 mmol/L (3.5-5.1)
[2019-11-14] MEDS ORDERED: DEXTROSE 50% JECT 50 ML DISP.SYRIN IVP ONE (14:15)
[2019-11-14] MEDS ORDERED: INSULIN REGULAR, HUMAN 10 UNITS/0.1 ML INJ IVP ONE (14:15)
[2019-11-14] MEDS ORDERED: LEVOFLOXACIN 500 MG/D5W 100 ML IV ONE (14:45)
[2019-11-14] MEDS ORDERED: INSULIN REGULAR, HUMAN 100 UNITS/ML, 10 ML VIAL (humuLIN R) SUBCUT PRN (14:45)
[2019-11-14 15:31] LABS: CALCIUM 8.2 mg/dL (8.4-11.0); CREATININE 4.71 mg/dL (0.55-1.30)
[2019-11-14 15:40] VITALS: BP_SYST 136
--- NOTE | 2019-11-14 15:40 | NUR ---
admission notes rec patient from er with a dx of hyperkalemia. awake alert ambulating at bedside. ivl on the r forearm intact. no infiltration noted. resp easy and unlabored. no osb noted. oriented re room set up. bed to the lowest positiion and side rails up and locked. call light within reached.
--- NOTE | 2019-11-14 15:50 | NUR ---
Patient will be admitted to care of Dr. Barba. Admitted to Telemetry unit. Will go to room 128. Belongings list completed. Complete and up to date summary report printed. SBAR report given to BRENT Velasco at bedside with opportunity for questions.
[2019-11-14 17:20] VITALS: BP_SYST 136
--- NOTE | 2019-11-14 18:20 | NUR ---
closing notes patient fami;ly at bedside. . denies pain. resting comfortably. no sob noted. call light within reached
[2019-11-14] MEDS ORDERED: PROXL60 PO (18:24)
[2019-11-14] MEDS ORDERED: METO50TA7 PO (18:24)
[2019-11-14] MEDS ORDERED: HYDR-4039 PO (18:24)
[2019-11-14] MEDS ORDERED: CLOP75TA32 PO (18:24)
[2019-11-14] MEDS ORDERED: IRBE150T48 PO (18:24)
[2019-11-14] MEDS ORDERED: LIP40 PO (18:24)
[2019-11-14] MEDS ORDERED: SPIR25TA6 PO (18:24)
--- NOTE | 2019-11-14 19:25 | NUR ---
Opening Note Received patient awake, resting in bed, no s/sx of distress. Nonlabored breathing on room air. He is talking w/ family visiting at bedside. Bed is locked in lowest position, side rails up 2x, call light w/in reach. Updated board.
--- NOTE | 2019-11-14 19:30 | NUR ---
Dr. Freda Barba at bedside to see patient.
[2019-11-14 20:00] VITALS: BP_SYST 144
[2019-11-14] MEDS ORDERED: DEXTROSE 50% JECT 50 ML DISP.SYRIN IVP PRN (20:00)
[2019-11-14] MEDS ORDERED: cloNIDine HCL 0.1 MG TABLET PO PRN (20:00)
--- NOTE | 2019-11-14 20:40 | NUR ---
Snack Patient requested a snack: a 1/2 sandwich with apple juice was provided. Education was provided regarding foods containing high potassium content such as orange juice.
[2019-11-14] MEDS: ATORVASTATIN 20 MG TABLET PO SCH (21:20)
[2019-11-14] MEDS: TAMSULOSIN HCL 0.4 MG CAP PO SCH (21:20)
[2019-11-14] MEDS: hydrALAZINE HCL 25 MG TABLET PO SCH (21:22)
--- NOTE | 2019-11-14 21:30 | NUR ---
Medication / fingerstick BG Due medications given; educated on side effects and he verbalized understanding. fingerstick blood glucose test result was 133 mg/dL and no coverage is due.
--- NOTE | 2019-11-14 21:45 | NUR ---
Water Water pitcher was provided, along with toiletries which patient requested. I informed him Dr. Barba ordered SCD's and provided education on indication/use he verbalized understanding.
--- NOTE | 2019-11-14 22:28 | NUR ---
CONSULT: CONSULT CALLED FOR DR. PRADO I SPOKE WITH SABRINA RODRÍGUEZ REASON FOR CONSULT: ABNORMAL LABS REQUESTING CONSULT: DR. PURVIS MANUFACTURING ENGINEER ASSEMBLY PHONE NUMBER: [phone]
--- NOTE | 2019-11-14 22:51 | NUR ---
CONSULT: CONSULT CALLED FOR DR. HAMILTON I SPOKE WITH GUERA RODRÍGUEZ REASON FOR CONSULT: RENAL FAILURE REQUESTING CONSULT: DR. PURVIS HOUSING QUALITY STANDARD INSPECTOR PHONE NUMBER: [phone]
--- NOTE | 2019-11-14 22:53 | NUR ---
CONSULT: CONSULT CALLED FOR DR. KYLIE BANUELOS I SPOKE WITH GUERA RODRÍGUEZ REASON FOR CONSULT: ELEVATED PSA REQUESTING CONSULT: DR. PURVIS REHAB NURSE PHONE NUMBER: [phone]
--- NOTE | 2019-11-15 00:20 | NUR ---
RN rounds / SCD's Patient is awake. He is done with brushing teeth and washing face. He was connected to SCD's. He is saline lock. Safety precautions in place and call light w/in reach.
[2019-11-15 01:55] VITALS: BP_SYST 141
--- NOTE | 2019-11-15 02:00 | NUR ---
Resting Patient is resting w/ eyes closed, symmetrical rise and fall of chest, nonlabored breathing.
--- NOTE | 2019-11-15 03:10 | NUR ---
Awake Patient is awake, he ambulated to restroom for void and returned to bed. He denies pain and has no further needs. Will continue to monitor.
--- NOTE | 2019-11-15 04:52 | NUR ---
Lab draw ophthalmic medical technologist at bedside for blood draw.
--- NOTE | 2019-11-15 05:09 | NUR ---
UA sample Patient provide UA sample in specimen cup, it was turned into lab.
[2019-11-15 06:13] LABS: BASOPHILS % (AUTO) 0.5 % (0.0-2.0); EOSINOPHILS # (AUTO) 0.3 K/uL (0.0-0.4); EOSINOPHILS % (AUTO) 4.3 % (0.0-4.0); HEMATOCRIT 31.6 % (36-54); HEMOGLOBIN 10.2 g/dL (14.0-18.0); LYMPHOCYTES # (AUTO) 1.9 K/uL (1.0-5.5); LYMPHOCYTES % (AUTO) 24.5 % (20.5-51.5); MEAN CORPUSCULAR HEMOGLOBIN 29 pg (27-31); MEAN CORPUSCULAR HGB CONC 32 % (32-36); MEAN CORPUSCULAR VOLUME 89 fL (79.0-98.0); MONOCYTES # (AUTO) 0.7 K/uL (0.0-1.0); MONOCYTES % (AUTO) 8.9 % (1.7-9.3); NEUTROPHILS # (AUTO) 4.7 K/uL (1.8-7.7); NEUTROPHILS % (AUTO) 61.8 % (40.0-70.0); PLATELET COUNT (AUTO) 190 K/uL (130-430); RED BLOOD CELL COUNT(AUTO) 3.57 MIL/uL (4.2-6.2); RED CELL DISTRIBUTION WIDTH 13.2 % (9.0-15.0); WHITE BLOOD COUNT (AUTO) 7.6 K/uL (4.8-10.8)
[2019-11-15 06:32] LABS: BILIRUBIN,URINE NEGATIVE (NEGATIVE); CLARITY/URINE CLEAR (CLEAR); COLOR,URINE YELLOW (YELLOW); GLUCOSE,URINE NEGATIVE (NEGATIVE); KETONES,URINE NEGATIVE (NEGATIVE); LEUKOCYTE ESTERASE ,URINE NEGATIVE (NEGATIVE); NITRITE, URINE NEGATIVE (NEGATIVE); PROTEIN URINE 3+ (NEGATIVE); UROBILINOGEN,URINE 0.2 (0.2-1.0)
[2019-11-15 06:34] LABS: ALBUMIN 2.9 g/dL (3.4-4.8); CALCIUM 8.4 mg/dL (8.4-11.0); CREATININE 4.81 mg/dL (0.55-1.30); PHOSPHORUS 4.9 mg/dL (2.7-4.5); POTASSIUM 4.9 mmol/L (3.5-5.1)
[2019-11-15 06:59] LABS: TOTAL BILIRUBIN 0.4 mg/dL (0.0-1.0)
[2019-11-15 07:00] LABS: BLOOD, URINE TRACE (NEGATIVE)
--- NOTE | 2019-11-15 07:25 | NUR ---
Dr. Gibson Incoming call from Dr. Gibson, he inquired about reason for admit and labs; I updated him on patient stay and answered questions regarding labs. He said he will be in to see patient today.
--- NOTE | 2019-11-15 07:30 | NUR ---
closing note Endorsed report to BRENT Rodriguez. Patient stable. needs met throughout shift.
[2019-11-15 07:45] LABS: TOTAL IRON BIND. CAPACITY 259 ug/dL (250-450)
[2019-11-15 07:59] LABS: FREE T4 (FREE THYROXINE) 0.8 ng/dL (0.6-1.6); THYROID STIMULATING HORMONE 1.41 uIu/mL (0.34-4.82)
[2019-11-15 08:06] LABS: BACTERIA,URINE FEW /HPF (None Seen); WBC,URINE 0-3 /HPF (0-3)
[2019-11-15] MEDS: TAMSULOSIN HCL 0.4 MG CAP PO SCH ×2 (09:19→20:39)
[2019-11-15] MEDS: hydrALAZINE HCL 25 MG TABLET PO SCH ×2 (09:19→20:40)
[2019-11-15] MEDS: ISOSORBIDE MONONITRATE 30 MG TAB.ER.24H PO SCH (09:26)
[2019-11-15] MEDS: NIFEDIPINE 30 MG TAB.ER.24 PO SCH (09:28)
--- NOTE | 2019-11-15 09:30 | NUR ---
Routine Patient ambulated to bathroom and back to bed. Scheduled meds given per order. Patient stable with no complaint of pain or discomfort at this time.
[2019-11-15] MEDS: METOPROLOL SUCCINATE 50 MG TAB.SR.24H (TOPROL XL) PO SCH (09:32)
[2019-11-15 09:37] VITALS: BP_SYST 139
--- NOTE | 2019-11-15 12:43 | NUR ---
Routine Patient sitting on side of bed with no complaint of pain or discomfort at this time. Checked blood sugar: 109 mg/dl - no coverage required. Patient stable at this time.
[2019-11-15 12:55] VITALS: BP_SYST 139
[2019-11-15] MEDS ORDERED: traMADol HCL HCL 50 MG TABLET (ULTRAM) PO PRN (14:00)
[2019-11-15] MEDS: ACETAMINOPHEN 325 MG TABLET PO PRN (14:15)
--- NOTE | 2019-11-15 14:17 | NUR ---
Routine Patient sitting in chair at bedside. Complained of 3/10 headache and right shoulder pain. PRN given per order. Patient stable at this time.
[2019-11-15 16:45] VITALS: BP_SYST 135
--- NOTE | 2019-11-15 17:08 | NUR ---
surgery consult SPOKE TO [place] OFFICE OF DR HARRISON, SHE WILL INFORM DR HARRISON OF CONSULT RE- PERMA CATH INSERTION.
--- NOTE | 2019-11-15 17:53 | NUR ---
Routine Checked blood sugar: 81 mg/dl - no coverage required. Patient sitting on side of bed, ready to eat dinner. Patient stable at this time.
[2019-11-15 19:30] VITALS: BP_SYST 130
--- NOTE | 2019-11-15 19:30 | NUR ---
INITIAL NOTES PATIENT IS LAYING IN BED AND STABLE. NO S/S OF RESPIRATORY DISTRESS NOTED. FAMILY IS BY BEDSIDE. PATIENT SUCCESSFULLY DEMONSTRATES USAGE OF CALL LIGHT AT THIS TIME. PLAN OF CARE DISCUSSED WITH PATIENT AND FAMILY. FALL, SAFETY, ASPIRATION, AND RESPIRATORY PRECAUTIONS WILL BE IN PLACE THROUGHOUT THE SHIFT. BED IS LOCKED AND AT THE LOWEST POSITION.
--- NOTE | 2019-11-15 20:30 | NUR ---
PATIENT FAMILY IS BY BEDSIDE. PATIENT IS STABLE AND SHOWS NO S/S OF REPARATORY DISTRESS NOTED. CALL LIGHT IN REACH. BED IS LOCKED, ALARMED, AND AT THE LOWEST POSITION.
[2019-11-15] MEDS: ATORVASTATIN 20 MG TABLET PO SCH (20:39)
--- NOTE | 2019-11-15 22:30 | NUR ---
PATIENT IS SLEEPING. PATIENT IS STABLE AND SHOWS NO S/S OF REPARATORY DISTRESS NOTED. CALL LIGHT IN REACH. BED IS LOCKED, ALARMED, AND AT THE LOWEST POSITION.
[2019-11-16 00:05] VITALS: BP_SYST 138
--- NOTE | 2019-11-16 00:05 | NUR ---
PATIENT IS EDUCATED ON NPO. PATIENT IS NPO. PATIENT IS STABLE AND SHOWS NO S/S OF REPARATORY DISTRESS NOTED. CALL LIGHT IN REACH. BED IS LOCKED, ALARMED, AND AT THE LOWEST POSITION.
--- NOTE | 2019-11-16 06:31 | NUR ---
CLOSING NOTES PATIENT IS LAYING IN BED AND STABLE. NO S/S OF RESPIRATORY DISTRESS NOTED. CALL LIGHT IN REACH. BED IS LOCKED AND AT THE LOWEST POSITION. FALL, SAFETY, ASPIRATION, AND RESPIRATORY PRECAUTIONS HAS BEEN IN PLACE THROUGHOUT THE SHIFT. WILL CONTINUE TO MONITOR UNTIL REPORT IS GIVEN TO AM NURSE BY BEDSIDE.
[2019-11-16] MEDS ORDERED: REGADENOSON 0.4 MG/5 ML SYRINGE IVP ONE (07:30)
--- NOTE | 2019-11-16 07:35 | NUR ---
Patient stable, HOB 30 degree, he does not present any complaints, he shows comprehension of proper use of call light and not to get up without aide. He is waiting for his lexiscan procedure today, consent papers for HD and Permacath have been signed by patient. Eder KENNEDY
[2019-11-16 08:00] VITALS: BP_SYST 125
[2019-11-16] MEDS: TAMSULOSIN HCL 0.4 MG CAP PO SCH ×2 (09:35→21:13)
[2019-11-16] MEDS: ISOSORBIDE MONONITRATE 30 MG TAB.ER.24H PO SCH (09:36)
[2019-11-16] MEDS: METOPROLOL SUCCINATE 50 MG TAB.SR.24H (TOPROL XL) PO SCH (09:37)
[2019-11-16] MEDS: NIFEDIPINE 30 MG TAB.ER.24 PO SCH (09:37)
[2019-11-16] MEDS: hydrALAZINE HCL 25 MG TABLET PO SCH ×2 (09:38→21:13)
--- NOTE | 2019-11-16 11:38 | NUR ---
Patient is stable and watching TV, vital signs are stable and is NPO, patient is going to have permacath done in a few hours. Patient education was given at bedside and patient verbalized comprehension. Eder KENNEDY
[2019-11-16 12:00] VITALS: BP_SYST 117
[2019-11-16 12:06] LABS: % FREE PSA 9.6 % (.); FREE PSA 1.95 ng/mL
--- NOTE | 2019-11-16 15:38 | NUR ---
Patient is stable, family is at bedside, he seems in good spirits. Patient is being transfered to a wheelchair to go to have the permacath placement. Eder KENNEDY
[2019-11-16 16:25] VITALS: BP_SYST 139
[2019-11-16 17:12] VITALS: BP_SYST 138
[2019-11-16] MEDS ORDERED: fentaNYL CITRATE/PF 100 MCG/2 ML AMP IVP PRN ×2 (17:15)
[2019-11-16] MEDS ORDERED: HEPARIN SODIUM, PORCINE 10,000 UNITS/ 10 ML VIAL ONE (17:45)
[2019-11-16] MEDS ORDERED: MIDAZOLAM HCL 5 MG/ML VIAL (VERSED) IV ONE (17:45)
[2019-11-16] MEDS ORDERED: CLINDAMYCIN PHOSPHATE 900 mg/50mL D5W IV ONE (17:45)
[2019-11-16] MEDS ORDERED: NS 1000 ML IV.SOLN IV ONE (17:45)
[2019-11-16] MEDS ORDERED: PROPOFOL 200MG/ 20ML VIAL (DIPRIVAN) IV ONE (17:45)
[2019-11-16] MEDS ORDERED: LIDOCAINE 1% 10 MG/ML, 20 ML MDV ONE (17:45)
[2019-11-16] MEDS ORDERED: HEPARIN SODIUM,PORCINE/NS/PF 1,000 UNITS/500 ML BAG IV ONE (17:45)
--- NOTE | 2019-11-16 19:30 | NUR ---
Opening notes Received report. Patient is resting in bed, no signs of distress noted. Breathing even and unlabored. Talking to family. [facility] sanjuana catheter in place. No complaints of pain or discomfort. Call light with the patient. Safety precautions in place.
[2019-11-16 20:00] VITALS: BP_SYST 128
[2019-11-16] MEDS: ATORVASTATIN 20 MG TABLET PO SCH (21:14)
[2019-11-16] MEDS: INSULIN REGULAR, HUMAN 100 UNITS/ML, 10 ML VIAL (humuLIN R) SUBCUT PRN (21:19)
--- NOTE | 2019-11-16 21:25 | NUR ---
Medications given. Accucheck 221. Insulin given per sliding scale. Educated the action and side effects of medications. Verified with resort housekeeper that hemodialysis is scheduled for tomorrow, not tonight. Provided patient with ice water. No other needs. Call light with the patient. Safety precautions in place.
[2019-11-17] MEDS: ACETAMINOPHEN 325 MG TABLET PO PRN ×2 (00:13→08:32)
--- NOTE | 2019-11-17 00:15 | NUR ---
Temp 100.5 Offered patient ice packs, but patient refuses. PRN Tylenol given for fever, and for pain to sanjuana site. Educated the action and side effects of medications. 1 hour after administration, temp 99.5. No other needs. Call light with the patient. Safety precautions in place.
[2019-11-17 00:41] VITALS: BP_SYST 133
--- NOTE | 2019-11-17 02:30 | NUR ---
Sleeping No signs of distress. Breathing even and unlabored. Call light with the patient. Safety precautions in place.
--- NOTE | 2019-11-17 04:22 | NUR ---
Sleeping No signs of distress noted. Breathing even and unlabored. Call light with the patient. Safety precautions in place.
[2019-11-17 05:16] LABS: HEPATITIS B SURFACE AG Negative (Negative); HEPATITIS C VIRUS AB <0.1 s/co ratio (0.0-0.9)
[2019-11-17 06:39] LABS: CALCIUM 8.3 mg/dL (8.4-11.0); CREATININE 5.06 mg/dL (0.55-1.30); POTASSIUM 4.9 mmol/L (3.5-5.1)
[2019-11-17 06:54] LABS: BASOPHILS % (AUTO) 0.4 % (0.0-2.0); EOSINOPHILS # (AUTO) 0.2 K/uL (0.0-0.4); EOSINOPHILS % (AUTO) 2.8 % (0.0-4.0); HEMATOCRIT 30.7 % (36-54); HEMOGLOBIN 9.8 g/dL (14.0-18.0); LYMPHOCYTES % (AUTO) 13.9 % (20.5-51.5); MEAN CORPUSCULAR HEMOGLOBIN 28 pg (27-31); MEAN CORPUSCULAR HGB CONC 32 % (32-36); MEAN CORPUSCULAR VOLUME 89 fL (79.0-98.0); MONOCYTES # (AUTO) 0.5 K/uL (0.0-1.0); MONOCYTES % (AUTO) 7.2 % (1.7-9.3); NEUTROPHILS # (AUTO) 5.6 K/uL (1.8-7.7); NEUTROPHILS % (AUTO) 75.7 % (40.0-70.0); PLATELET COUNT (AUTO) 165 K/uL (130-430); RED BLOOD CELL COUNT(AUTO) 3.47 MIL/uL (4.2-6.2); RED CELL DISTRIBUTION WIDTH 13.4 % (9.0-15.0); WHITE BLOOD COUNT (AUTO) 7.4 K/uL (4.8-10.8)
--- NOTE | 2019-11-17 07:01 | NUR ---
Closing notes Patient is resting in bed, no signs of distress noted. Breathing even and unlabored. Accucheck 81. Encouraged patient to eat breakfast. Patient verbalized understanding. All needs met throughout the shift. Call light with the patient. Safety precautions in place. Will endorse care to day shift RN.
[2019-11-17 08:00] VITALS: BP_SYST 133
[2019-11-17] MEDS: ISOSORBIDE MONONITRATE 30 MG TAB.ER.24H PO SCH (08:28)
[2019-11-17] MEDS: TAMSULOSIN HCL 0.4 MG CAP PO SCH ×2 (08:29→22:31)
[2019-11-17] MEDS: METOPROLOL SUCCINATE 50 MG TAB.SR.24H (TOPROL XL) PO SCH (08:31)
[2019-11-17] MEDS: hydrALAZINE HCL 25 MG TABLET PO SCH ×2 (08:33→22:31)
[2019-11-17] MEDS: NIFEDIPINE 30 MG TAB.ER.24 PO SCH (08:39)
--- NOTE | 2019-11-17 13:05 | NUR ---
Patient is being currently dialyzed, patient is stable with no signs of weakness or nausea. He is tolerating the dialysis very well. Will continue to assess after his dialysis. Eder KENNEDY
--- NOTE | 2019-11-17 14:19 | NUR ---
DC PLANNING Called & left msg willian Jo @ [facility], ph [phone], that pt will be needing new outpt HD set up. Need list of contracted HD centers for pt.
[2019-11-17] MEDS ORDERED: HEPARIN SODIUM,PORCINE 5000 UNITS/ML VIAL MC ONE (14:45)
[2019-11-17 15:11] LABS: PROSTATE SPECIFIC AG TOTAL 20.4 ng/mL (0.0-4.0)
[2019-11-17 17:25] VITALS: BP_SYST 127
--- NOTE | 2019-11-17 17:44 | NUR ---
Patient is stable, sugar level are ok - no coverage needed, patient will be dialyzed in a few hours. He ambulates well without any problem. Bed is locked, low and 2 rails are up. Patient has call light next to him and is instructed to call if she should need anything. Eder KENNEDY Addendum: 11/17/19 at 1747 by Aaliyah Shi RN Please note that this note is for 9am on 11/17/19. Thank you
--- NOTE | 2019-11-17 19:30 | NUR ---
Opening notes Received report. Patient is resting in bed, no signs of distress noted. Breathing even and unlabored. Talking to family. [facility] sanjuana catheter in place. No complaints of pain or discomfort. Patient asking informeation about permacath placement. Will contact surgeon for more information. No other needs. Call light with the patient. Safety precautions in place.
[2019-11-17 20:00] VITALS: BP_SYST 128
--- NOTE | 2019-11-17 21:28 | NUR ---
PAGED PAGED DR. PILAR MANCINI, SPOKE WITH SAM
--- NOTE | 2019-11-17 21:40 | NUR ---
Spoke to Dr. Sullivan inquired about surgery. Dr. Sullivan stated patient will have surgery in afternoon. Patient can be NPO after breakfast. Patient informed.
--- NOTE | 2019-11-17 22:30 | NUR ---
Medications given. Educated the action and side effects of medications. Accucheck 106. Provided patient with sandwich. No other needs. Call light with the patient. Safety precautions in place.
[2019-11-17] MEDS: ATORVASTATIN 20 MG TABLET PO SCH (22:31)
--- NOTE | 2019-11-18 00:30 | NUR ---
Resting Patient resting in bed, watching TV. No signs of distress noted. Breathing even and unlabored. No complaints of pain. No needs. Call light with the patient. Safety precautions in place.
[2019-11-18 02:06] VITALS: BP_SYST 148
--- NOTE | 2019-11-18 02:30 | NUR ---
Resting Patient walked to bathroom. No signs of distress noted. Breathing even and unlabored. No needs. Patient went back to sleep. Call light with the patient. Safety precautions in place.
--- NOTE | 2019-11-18 04:07 | NUR ---
Sleeping No signs of distress noted. Breathing even and unlabored. No needs at this time. Call light with the patient. Safety precautions in place.
--- NOTE | 2019-11-18 06:56 | NUR ---
Closing notes Patient resting in bed. No signs of distress noted. Breathing even and unlabored. No complaints of pain or discomfort. IV patent and intact, no signs of infiltration noted. RIJ in place. Patient is to be NPO after breakfast. All needs met throughout the shift. Call light with the patient. Safety precautions in place. will endorse care to day shift RN.
[2019-11-18 08:00] VITALS: BP_SYST 130
--- NOTE | 2019-11-18 08:00 | NUR ---
Note Pt sitting up in bed eating his breakfast - pt did self hygiene care in restroom. No SOB/resp distress or pain/discomfort noted at this time. Tele unit attached and intact. Right IJ intact and patent at this time. No needs noted at this time. Call light within reach.
[2019-11-18] MEDS: METOPROLOL SUCCINATE 50 MG TAB.SR.24H (TOPROL XL) PO SCH (09:27)
[2019-11-18] MEDS: hydrALAZINE HCL 25 MG TABLET PO SCH ×2 (09:27→21:09)
[2019-11-18] MEDS: ISOSORBIDE MONONITRATE 30 MG TAB.ER.24H PO SCH (09:28)
[2019-11-18] MEDS: TAMSULOSIN HCL 0.4 MG CAP PO SCH ×2 (09:28→21:08)
[2019-11-18] MEDS: NIFEDIPINE 30 MG TAB.ER.24 PO SCH (09:28)
--- NOTE | 2019-11-18 09:30 | NUR ---
Note Pt was given his 09am medications and now kept NPO for PermCath placement surgery this afternoon. Pt denies any needs at this time. Call light within reach.
--- NOTE | 2019-11-18 12:35 | NUR ---
Note Pt resting in bed, at bedside. Pt denies any needs at this time. No needs noted at this time. Call light within reach.
[2019-11-18 12:37] VITALS: BP_SYST 124
--- NOTE | 2019-11-18 14:22 | NUR ---
DC PLANNING Called & spoke w Deysi @ [facility], ph [phone], informed pt would need outpt HD on discharge. States closest contracted HD centers are: [facility] in [place]: [address] [place] [address] ph [phone] & [facility]: [address] [address] ph [phone]. Per Deysi once have order for HD to fax it to them fax [phone], for auth. States to specify which HD center. Also per Deysi, plan covers 39 visits for HD for Lifetime. Addendum: 11/18/19 at 1623 by Bia Buck RN Spoke w pt @ bedside & informed, gave list of 2 HD centers. Agreeable w HD, states to call . Called & spoke w Nicole,ph [phone], states would most likely want Dialysis center in [place], is coming to see pt.
--- NOTE | 2019-11-18 15:20 | NUR ---
Note Pt resting in bed. Denies any needs at this time. No SOB/resp distress or pain/discomfort noted at this time. Call light within reach.
[2019-11-18 16:27] VITALS: BP_SYST 115
--- NOTE | 2019-11-18 18:15 | NUR ---
Note Dr Sullivan called at 1710 and surgery for PermCath postponed till tomorrow morning. Pt may be fed tonight and NPO after midnight. Pt sitting on side of bed and eating his dinner. Pt's at bedside most of shift. No SOB/resp distress or pain/discomfort noted at this time. Tele unit attached and intact all shift. RIJ intact and patent. Pt was checked on q1' and PRN all shift for needs and care. No needs noted at this time. Call light within reach.
--- NOTE | 2019-11-18 19:25 | NUR ---
Opening Note Received patient awake, sitting in bed, no s/sx of distress. Nonlabored breathing on room air. He is watching t.v. Bed is locked in lowest position, side rails up 2x, call light w/in reach. Updated board.
[2019-11-18 20:00] VITALS: BP_SYST 132
[2019-11-18] MEDS: ATORVASTATIN 20 MG TABLET PO SCH (21:08)
--- NOTE | 2019-11-18 21:10 | NUR ---
Medications Due medications given and educated on side effects, he verbalized understanding.
--- NOTE | 2019-11-18 21:27 | NUR ---
Fingerstick BS Fingerstick BS test done w/result of 149 mg/dL, no coverage due. Patient requested a sandwhich and it was provided. He was reminded that he will be NPO at midnight. He has no further needs. Call light w/in reach.
[2019-11-19] VITALS (7 sets, daily range): BP systolic 130–155
--- NOTE | 2019-11-19 00:29 | NUR ---
V/S / NPO Patient was awake resting in bed, no distress. Patient's VSS. He was reminded that He will be NPO. He was offered water or snack before it is removed and he said no thanks, he is good. Water pitcher and food items were removed from tray. The board was updated and an NPO cone was place on bedside tray.
--- NOTE | 2019-11-19 02:10 | NUR ---
RN rounds Patient is resting w/ eyes closed. Nonlabored breathing. Safety precautions in place and call light w/in reach.
--- NOTE | 2019-11-19 04:20 | NUR ---
Resting Patient is resting w/ eyes closed. Symmetrical rise and fall of chest, nonlabored breathing. Safety precautions in place and call light w/in reach.
--- NOTE | 2019-11-19 07:00 | NUR ---
closing note Fingerstick BS test done w/result of 102 mg/dL, no coverage due. Presently denies pain. No s/sx of distress, needs met throughout shift, will endorse care.
--- NOTE | 2019-11-19 08:00 | NUR ---
Note Pt sitting up in bed, denies any SOB/resp distress or pain/discomfort at this time. Pt's RIJ intact and patent at this time. Right forearm IV intact and patent at this time. Tele unit attached and intact at this time. Pt has been NPO since midnight for surgery of PermCath placement at this time. Call light within reach.
[2019-11-19] MEDS: ISOSORBIDE MONONITRATE 30 MG TAB.ER.24H PO SCH (08:42)
[2019-11-19] MEDS: NIFEDIPINE 30 MG TAB.ER.24 PO SCH (08:42)
[2019-11-19] MEDS: TAMSULOSIN HCL 0.4 MG CAP PO SCH ×2 (08:42→20:47)
[2019-11-19] MEDS: hydrALAZINE HCL 25 MG TABLET PO SCH ×2 (08:42→20:49)
[2019-11-19] MEDS: METOPROLOL SUCCINATE 50 MG TAB.SR.24H (TOPROL XL) PO SCH (08:43)
--- NOTE | 2019-11-19 11:15 | NUR ---
Note Pt resting in bed. No needs noted at this time. Call light within reach. Pt still NPO all shift.- since midnight.
--- NOTE | 2019-11-19 12:00 | NUR ---
Note Pt doing CHG bath and changing into clean gown. Pt's arrived and is at pt's bedside at this time. No needs noted at this time. Call light within reach.
--- NOTE | 2019-11-19 12:20 | NUR ---
Note Pt was taken to OR via bed at 1205pm. Vital signs WNL. No needs noted at this time. Addendum: 11/19/19 at 1224 by Andreia Plaza RN Tele unit dc'd and kept on bedside table at this time.
[2019-11-19] MEDS ORDERED: fentaNYL CITRATE/PF 100 MCG/2 ML AMP IVP PRN ×2 (12:45)
[2019-11-19] MEDS ORDERED: ONDANSETRON HCL 4 MG/2 ML VIAL IVP PRN (12:45)
--- NOTE | 2019-11-19 13:34 | NUR ---
Dietitian Recommendations * Consider advance to CCHO, renal diet if/when medically appropriate * Nutrition education prior to D/C AURY, RD Please refer to Nutrition Assessment for details. Addendum: 11/19/19 at [address] Amended: Links added.
--- NOTE | 2019-11-19 14:30 | NUR ---
Note Pt back to floor/rrom at 1405 via bed. Pt's right hand IV intact and patent infusing IVF's well at this time. VSS. Right chest site of PermCath intact and dressing intact and there is 5lb bag on. Pt requested lunch tray, as he was very hungry. Cardiac lunch tray was provided at this time. Pt's and daughter are at bedside. at this time. No needs noted at this time. Call light within reach.
[2019-11-19] MEDS: ACETAMINOPHEN 325 MG TABLET PO PRN (14:34)
--- NOTE | 2019-11-19 16:00 | NUR ---
Note Pt was seen and assessed by Dr Barba at bedside at 1530. Pt denies any needs at this time. Right upper chest PermCath site dry and intact, no bleeding noted. 5lb sand bag on at this time. No needs noted. Call light within reach. Pt's and daughter at bedside.
--- NOTE | 2019-11-19 18:15 | NUR ---
Note Pt having Hemodialysis at this time, started at 1640. retail sales associate bilingual removed the 5lb sandbag of pt's chest wall - where PermCath placement was done in surgery. Pt denies any SOB/resp distress or pain/discomfort at this time. Right hand IV site intact and patent at this time. Pt has tele unit attached and intact since coming back from surgery at 1405. Pt was checked on q1' and PRN all shift for needs and care. Pt has 5 family members at bedside visiting at this time. No needs noted at this time. Call light within reach. Pt was maintained with safety precautions all shift.
[2019-11-19] MEDS ORDERED: HEPARIN SODIUM,PORCINE 5000 UNITS/ML VIAL ONE (19:25)
[2019-11-19] MEDS: ATORVASTATIN 20 MG TABLET PO SCH (20:48)
[2019-11-20 04:00] VITALS: BP_SYST 148
[2019-11-20 06:31] LABS: BASOPHILS % (AUTO) 0.4 % (0.0-2.0); EOSINOPHILS # (AUTO) 0.4 K/uL (0.0-0.4); EOSINOPHILS % (AUTO) 5.2 % (0.0-4.0); HEMATOCRIT 34.1 % (36-54); HEMOGLOBIN 11.1 g/dL (14.0-18.0); LYMPHOCYTES # (AUTO) 1.5 K/uL (1.0-5.5); LYMPHOCYTES % (AUTO) 17.9 % (20.5-51.5); MEAN CORPUSCULAR HEMOGLOBIN 29 pg (27-31); MEAN CORPUSCULAR HGB CONC 33 % (32-36); MEAN CORPUSCULAR VOLUME 88 fL (79.0-98.0); MONOCYTES # (AUTO) 0.8 K/uL (0.0-1.0); MONOCYTES % (AUTO) 9.2 % (1.7-9.3); NEUTROPHILS # (AUTO) 5.7 K/uL (1.8-7.7); NEUTROPHILS % (AUTO) 67.3 % (40.0-70.0); PLATELET COUNT (AUTO) 165 K/uL (130-430); RED BLOOD CELL COUNT(AUTO) 3.89 MIL/uL (4.2-6.2); RED CELL DISTRIBUTION WIDTH 13.1 % (9.0-15.0); WHITE BLOOD COUNT (AUTO) 8.5 K/uL (4.8-10.8)
[2019-11-20 06:41] LABS: CALCIUM 8.1 mg/dL (8.4-11.0); CREATININE 3.46 mg/dL (0.55-1.30); PHOSPHORUS 4.7 mg/dL (2.7-4.5); POTASSIUM 3.8 mmol/L (3.5-5.1)
--- NOTE | 2019-11-20 07:50 | NUR ---
INITIAL NOTE RECEIVED PT IN BED, NO S/S OF DISTRESS OR SOB NOTED, PT HAS NO C/O PAIN AT THIS TIME, PT IN STABLE CONDITION, PT AAOX4 VERBAL. IV CATHETER PATENT, NO SIGNS OF INFECTION OR INFILTRATION NOTED, SALINE LOCK. EDUCATED PT ON USE OF INCENTIVE SPIROMETER, PT TO USE 10 TIMES AN HOUR WHILE AWAKE, PT VERBALIZED UNDERSTANDING, PT AT 1500ML. FALL AND SAFETY PRECAUTIONS IN PLACE. BED AT LOWEST POSITION, CALL LIGHT WITHIN REACH, WILL CONTINUE TO MONITOR PT FOR ANY CHANGES.
[2019-11-20 08:10] VITALS: BP_SYST 131
[2019-11-20] MEDS: NIFEDIPINE 30 MG TAB.ER.24 PO SCH (08:51)
[2019-11-20] MEDS: METOPROLOL SUCCINATE 50 MG TAB.SR.24H (TOPROL XL) PO SCH (08:51)
[2019-11-20] MEDS: ISOSORBIDE MONONITRATE 30 MG TAB.ER.24H PO SCH (08:52)
[2019-11-20] MEDS: TAMSULOSIN HCL 0.4 MG CAP PO SCH ×2 (08:52→20:21)
[2019-11-20] MEDS: hydrALAZINE HCL 25 MG TABLET PO SCH ×2 (08:52→20:21)
--- NOTE | 2019-11-20 10:10 | NUR ---
ROUNDS PT IN BED, NO S/S OF DISTRESS OR SOB NOTED, PT HAS NO C/O PAIN AT THIS TIME, PT IN STABLE CONDITION, PT WATCHING TV. WILL CONTINUE TO MONITOR PT FOR ANY CHANGES.
--- NOTE | 2019-11-20 10:34 | NUR ---
ROUNDS PT IN BED, NO S/S OF DISTRESS OR SOB NOTED, PT HAS NO C/O PAIN AT THIS TIME, PT IN STABLE CONDITION, PT HELPED TO AMBULATE TO RESTROOM, HYGIENE PROVIDED, PT HAD A BM. BED AT LOWEST POSITION, CALL LIGHT WITHIN REACH, WILL CONTINUE TO MONITOR PT FOR ANY CHANGES. Addendum: 11/20/19 at 1036 by Tanya Kent RN NOTE NOT FOR THIS PT
[2019-11-20] MEDS: INSULIN REGULAR, HUMAN 100 UNITS/ML, 10 ML VIAL (humuLIN R) SUBCUT PRN ×3 (11:46→22:22)
[2019-11-20 12:19] VITALS: BP_SYST 138
[2019-11-20 16:01] VITALS: BP_SYST 112
[2019-11-20] MEDS ORDERED: NEPHROVITE, (FOLIC ACID/VITAMIN B COMP W-C 1 TAB) PO ONE (16:15)
[2019-11-20] MEDS ORDERED: ASPIRIN 81 MG TABLET(ECOTRIN) PO ONE (16:15)
--- NOTE | 2019-11-20 18:34 | NUR ---
CLOSING NOTE PT IN BED, NO S/S OF DISTRESS OR SOB NOTED, PT HAS NO C/O PAIN AT THIS TIME, PT IN STABLE CONDITION, PT AAOX4 VERBAL. IV CATHETER PATENT, NO SIGNS OF INFECTION OR INFILTRATION NOTED, SALINE LOCK. EDUCATED PT ON USE OF INCENTIVE SPIROMETER, PT AT 1500ML. FALL AND SAFETY PRECAUTIONS IN PLACE. BED AT LOWEST POSITION, CALL LIGHT WITHIN REACH, WILL ENDORSE CARE OF PT TO INCOMING NURSE. FAMILY AT BEDSIDE.
[2019-11-20 19:00] VITALS: BP_SYST 120
--- NOTE | 2019-11-20 19:15 | NUR ---
change of shift.pt.presents quiescent affect;calm,oob;chair.no c/o pain,nausea.pt.presents initial hem-dialysis therapy.h/d access location; rt.internal jugular;perma-cath.intact patent.general status stable.respiratory status stable;unlabored@room air.pt.capable to ambulate/reposition self.call light/telephone w/in reach of the pt.
[2019-11-20 20:00] VITALS: BP_SYST 120
--- NOTE | 2019-11-20 20:00 | NUR ---
pt.assessed.v/s assessed;values w/in normal limits.no c/o pain,nausea.i have apprised the pt.that i may provide snacks/ beverages w/in the shift.pt.had requested juice/pudding.i have provided the snack items.general status stable.respiratory status stable;unlabored.pt.oob;chair. pt.capable to reposition self.call light/telephone w/in reach of the pt.
[2019-11-20] MEDS: ATORVASTATIN 20 MG TABLET PO SCH (20:21)
[2019-11-20] MEDS: ACETAMINOPHEN 325 MG TABLET PO PRN (20:23)
--- NOTE | 2019-11-20 20:30 | NUR ---
pt.i have assessed the blood glucose:value;253mg/dl.i have apprised the pt. of the value.pt.had requested medication ;pain.to f/u review of the emar;med-list.
--- NOTE | 2019-11-20 21:00 | NUR ---
2100p medications administered.i have administered tylenol;650mg po.to re-assess the efficacy of the pain medication per pain mgx protocol. i have administered insulin;regular;6-units.no additional requests posited@this hour.i have provided warm compress.
--- NOTE | 2019-11-20 22:00 | NUR ---
pt.assessed.pt.presents quiescent affect;calm,resting;oob;chair.pain present tolerable status.no requests posited @this hour. pt.capable to reposition self.general status stable.respiratory status stable.unlabored.call light/telephone w/in reach of the pt.
--- NOTE | 2019-11-21 | NUR ---
pt.assessed v/s assessed values w/in normal limits.no c/o pain,nausea.warm compress provided.i have inspected the urinal.clean. location bathroom.per pt's requests.general status stable.respiratory status stable;unlabored.pt.capable to reposition self.call light/ telephone w/in reach of the pt.
[2019-11-21 01:37] VITALS: BP_SYST 115
--- NOTE | 2019-11-21 02:00 | NUR ---
pt.assessed.pt.presents quiescent affect;calm,somnolent.general status stable.respiratory status stable;unlabored. pt.capable to reposition self.call light/telephone w/in reach of the pt.
--- NOTE | 2019-11-21 04:00 | NUR ---
PT.ASSEsSED PT.PReSENT QUIESCENT AFFeCT;CAlM,SOMNOLENT.GENeRAL STaTUs STABLe.RESPIRAToRY STAtUs STAbLe;uNlABORED. I have inspected urinal;measured/cleaned.placed w/in the restroom.pt.capable to reposition self.call light/telephone w/in reach of the pt.
--- NOTE | 2019-11-21 06:00 | NUR ---
pt.assessed.pt.presents quiescent affect;calm,resting.i have the blood glucose;value;111mg/dl;.i have apprised the pt.of the value. no c/o pain,nausea.i have attended to the urinal:measured/cleaned.located w/in the restroom.no c/o pain,nausea.no requests posited@this hour.i have weighed the pt.this am;2/t hemo-dialysis therapy.call light/telephone w/in reach of the pt.
--- NOTE | 2019-11-21 07:55 | NUR ---
Opening note patient resting in bed, a/ox4, states he has pain on his neck, assessment complete, right chest permacath with dressing clean, dry and intact, educated the patient bilingual medical receptionist light system and plan of care, he verbalized understanding, bed in lowest position, two side rails up, call light within reach, fall and aspiration precautions in place.
[2019-11-21] MEDS: ACETAMINOPHEN 325 MG TABLET PO PRN (08:01)
[2019-11-21] MEDS: ASPIRIN 81 MG TABLET(ECOTRIN) PO SCH (09:08)
[2019-11-21] MEDS: ISOSORBIDE MONONITRATE 30 MG TAB.ER.24H PO SCH (09:08)
[2019-11-21] MEDS: CALCITRIOL 0.25 MCG CAPSULE PO SCH (09:08)
[2019-11-21] MEDS: NEPHROVITE, (FOLIC ACID/VITAMIN B COMP W-C 1 TAB) PO SCH (09:08)
[2019-11-21] MEDS: METOPROLOL SUCCINATE 50 MG TAB.SR.24H (TOPROL XL) PO SCH (09:09)
[2019-11-21] MEDS: NIFEDIPINE 30 MG TAB.ER.24 PO SCH (09:10)
[2019-11-21] MEDS: hydrALAZINE HCL 25 MG TABLET PO SCH ×2 (09:10→21:22)
[2019-11-21] MEDS: TAMSULOSIN HCL 0.4 MG CAP PO SCH ×2 (09:10→21:21)
--- NOTE | 2019-11-21 09:10 | NUR ---
Medication patient resting in bed, awake, states pain is better, post PRN medication, educated on scheduled medications uses and potential side effects, he verbalized understanding and tolerated well, no other needs at this time, bed in lowest position, two side rails up, call light within reach, fall and aspiration precautions in place.
[2019-11-21 09:53] VITALS: BP_SYST 147
--- NOTE | 2019-11-21 10:22 | NUR ---
RN rounds patient resting in bed, awake, denies pain, patient asking to ambulate in the hallway, instructed patient to ask for assistance if required, otherwise patient has steady gait, continuing to monitor, bed in lowest position, two side rails up, call light within reach, fall and aspiration precautions in place.
[2019-11-21] MEDS: INSULIN REGULAR, HUMAN 100 UNITS/ML, 10 ML VIAL (humuLIN R) SUBCUT PRN (11:29)
--- NOTE | 2019-11-21 11:30 | NUR ---
RN rounds patient resting in bed, awake, denies pain, blood glucose checked, insulin coverage provided per MD orders, patient tolerated well, no other needs at this time, continuing to monitor, bed in lowest position, two side rails up, call light within reach, fall and aspiration precautions in place.
[2019-11-21 12:33] VITALS: BP_SYST 124
--- NOTE | 2019-11-21 13:55 | NUR ---
RN rounds patient resting in bed, awake, denies pain, asking to speak with case managers, called Bia RN, patient has no other needs at this time, continuing to monitor, bed in lowest position, two side rails up, call light within reach, fall and aspiration precautions in place.
--- NOTE | 2019-11-21 15:49 | NUR ---
LEXIS PLANNING Order for outpt HD @ [facility]. [facility] not contracted, informed Coello @ HD center, pt/ Nicole aware, informed pt's nurse. Pt & Nicole prefer [facility] in [place], ph [phone]. /Pt also prefer T/TH/Sat HD afternoon around 1pm if possible. Called [facility] dialysis in [place] & spoke willian Padilla, states not a Hemo Dialysis Center, do procedures for HD pt's. Called & informed Deysi @ [facility], fax [phone], states [place] [facility], none closer. Faxed order/pt info to Deysi for auth for outpt HD. Called & spoke willian Connor @ [facility], ph [phone] fax [phone], faxed pt info. Informed of pt preference. Spoke w pt @ bedside & informed no HD center in [facility] closest, pt agreeable states will inform .
[2019-11-21 16:29] VITALS: BP_SYST 109
--- NOTE | 2019-11-21 16:47 | NUR ---
Dr. Barba rounds/RN rounds patient resting in chair at bedside, denies pain at this time, bed in lowest position, call light within reach, fall and aspiration precautions in place. Dr. Barba at bedside, assessed the patient, informed MD of patient complaint of neck pain as well, will follow up with any new orders.
--- NOTE | 2019-11-21 16:56 | NUR ---
Patient off the unit to CT scan, stable condition.
--- NOTE | 2019-11-21 17:04 | NUR ---
Patient back on the unit from CT scan, stable condition.
--- NOTE | 2019-11-21 17:23 | NUR ---
RN rounds patient resting in bed, awake, denies pain, blood glucose checked, no insulin coverage provided per MD orders, no other needs at this time, continuing to monitor, bed in lowest position, two side rails up, call light within reach, fall and aspiration precautions in place.
--- NOTE | 2019-11-21 18:29 | NUR ---
Closing note patient resting in bed, awake, eating dinner, denies pain, all needs met, will endorse report to NOC shift nurse, bed in lowest position, two side rails up, call light within reach, fall and aspiration precautions in place.
--- NOTE | 2019-11-21 19:25 | NUR ---
Opening Note Received patient awake, resting in bed, no s/sx of distress. Nonlabored breathing on room air. Bed is locked in lowest position, side rails up 2x, call light w/in reach. Updated board.
[2019-11-21 20:00] VITALS: BP_SYST 125
[2019-11-21] MEDS: ATORVASTATIN 20 MG TABLET PO SCH (21:21)
--- NOTE | 2019-11-21 21:25 | NUR ---
Medications due mediations given, fingerstick blood glucose is 166 mg/dL; no coverage due per sliding scale order.
[2019-11-22 00:15] VITALS: BP_SYST 121
--- NOTE | 2019-11-22 02:30 | NUR ---
RN rounds Patient is resting w/ eyes closed and momentarily is awake. Nonlabored breathing, presently denies pain, has no further needs. Safety precautions in place and call light w/in reach.
[2019-11-22 06:42] VITALS: BP_SYST 121
--- NOTE | 2019-11-22 06:50 | NUR ---
closing note Fingerstick BG test done w/ result of 109 mg/dL. Patient is resting in comfortable position, no s/sx of distress. Will endorse care to incoming day shift nurse.
--- NOTE | 2019-11-22 07:15 | NUR ---
received patient aaox 4. sitting on the chair. lungs bilaterally clear. abdomen soft and non distended. has no iv access noted. has rt permacath on the upper chest dressing dry/intact. no sob nor complained of pain noted. verbalized wants to eat breakfast. vitals signs stable. afebrile. had bowel movement this morning. bed low position, alarmed and locked. will continue to monitor patients status.
--- NOTE | 2019-11-22 08:00 | NUR ---
EATING BREAKFAST. SITTING ON THE CHAIR. NO PAIN NOR OTHER COMPLAINED NOTED.
[2019-11-22 08:35] VITALS: BP_SYST 137
--- NOTE | 2019-11-22 09:00 | NUR ---
DUE MEDICATIONS GIVEN.
[2019-11-22] MEDS: NIFEDIPINE 30 MG TAB.ER.24 PO SCH (09:06)
[2019-11-22] MEDS: ISOSORBIDE MONONITRATE 30 MG TAB.ER.24H PO SCH (09:06)
[2019-11-22] MEDS: hydrALAZINE HCL 25 MG TABLET PO SCH ×2 (09:07→20:52)
[2019-11-22] MEDS: CALCITRIOL 0.25 MCG CAPSULE PO SCH (09:07)
[2019-11-22] MEDS: NEPHROVITE, (FOLIC ACID/VITAMIN B COMP W-C 1 TAB) PO SCH (09:08)
[2019-11-22] MEDS: TAMSULOSIN HCL 0.4 MG CAP PO SCH ×2 (09:08→20:52)
[2019-11-22] MEDS: ASPIRIN 81 MG TABLET(ECOTRIN) PO SCH (09:08)
[2019-11-22] MEDS: METOPROLOL SUCCINATE 50 MG TAB.SR.24H (TOPROL XL) PO SCH (09:09)
--- NOTE | 2019-11-22 10:43 | NUR ---
STILL THE ROOM. AWAITING FOR DOCTORS TO COME, PERHAPS TO HAVE DIALYSIS TODAY. RESTING WATCHING TV
--- NOTE | 2019-11-22 10:45 | NUR ---
Discharge Planning: DCP followed up with [facility] ([phone]) DCP lm for Mida need chair time. DCP to follow up.
[2019-11-22 12:00] VITALS: BP_SYST 116
--- NOTE | 2019-11-22 13:00 | NUR ---
dialysis started at this time. patient stable. no pain nor other complained noted.
--- NOTE | 2019-11-22 13:38 | NUR ---
DC Barriers: Pending chair time at [facility]. Per Dillon: she did not get complete documentation, missing Hep Panel and CXR r/o TB. The cxr will be done today after pt finished bedside HD. Per dr Barba, the pt can be discharged today after HD and have chair time at the HD ctr.
[2019-11-22] MEDS ORDERED: HEPARIN SODIUM,PORCINE 5000 UNITS/ML VIAL SUBCUT ONE (14:30)
[2019-11-22] MEDS ORDERED: HEPARIN SODIUM, PORCINE 10,000 UNITS/ 10 ML VIAL MC ONE (14:30)
[2019-11-22] MEDS ORDERED: NEPH PO (14:35)
[2019-11-22] MEDS ORDERED: ASPI-1153 PO (14:35)
[2019-11-22] MEDS ORDERED: CALC0.258 PO (14:35)
[2019-11-22] MEDS ORDERED: LIP20 PO (14:35)
[2019-11-22] MEDS ORDERED: GLIP5TAB13 PO (14:35)
--- NOTE | 2019-11-22 15:56 | NUR ---
still having dialysis procedure at the bedside.
--- NOTE | 2019-11-22 15:57 | NUR ---
Nutrition F/U RD reviewed pt's current EMR record including diet Hx, physician notes, nursing notes, pertinent labs/meds/procedures, care trends, and care activity. Admission Dx: Renal failure, hyperkalemia PMH: ESRD, DM, HTN, CVA, HLD, BPH, obesity per physician notes Current Diet Order/Nutrition Support: Cardiac x3 days Subjective Info: Pt seen resting in bed, receiving dialysis. Pt reported good appetite, tolerating diet well. Pt reported generally eats 3x/day, mostly vegetables, low-protein, and avoids rice and pasta. Pt reported BM x1 today, no difficulties. Use of VIT D supplementation. Pt was interested in nutrition education; RD to provide. Please refer to interdisciplinary teaching record for details. Skin Integrity Comment: Iggy scale: 22; per nursing notes, R neck: incision Current % PO 98% average x6 meals Estimated Energy Expenditure (kcals/day) 4510-3644 kcal/day (MSJ x 1.2-1.5 CBW for chronic Dz) Estimated Protein Required (g/day) 90-105 gm/day (1.2-1.4 gm/kg Adj IBW for ESRD, HD) Estimated Fluid Required (l/day) Per physician d/t ESRD Problem/Etiology/Signs/Symptoms Altered nutrition-related labs related to renal dysfunction as evidenced by abnormal BUN and CRE lab values. *ongoing Expected Outcomes/Goals - Monitor advancement of diet, appetite, and PO intakes w/ goal of pt meeting at least 75% of estimated nutritional needs, labs trending WNL, normal GI function, and skin integrity/wt maintenance Dietitian Recommendations * Recommend CCHO, renal diet * RD provided diabetic and renal/dialysis MNT Follow Up Low Risk: F/U in 7 days
[2019-11-22 16:00] VITALS: BP_SYST 118
--- NOTE | 2019-11-22 16:01 | NUR ---
Dietitian Recommendations * Recommend CCHO, renal diet * RD provided diabetic and renal/dialysis MNT LP, RD Please refer to Nutrition F/U for details.
--- NOTE | 2019-11-22 16:30 | NUR ---
HAD DIALYSIS OUTPUT OF ONE LITER AT THIS TIME.
[2019-11-22] MEDS: INSULIN REGULAR, HUMAN 100 UNITS/ML, 10 ML VIAL (humuLIN R) SUBCUT PRN ×2 (17:43→21:01)
--- NOTE | 2019-11-22 17:48 | NUR ---
latest bs 229 mg/dl. coverage given as ordered.
--- NOTE | 2019-11-22 18:30 | NUR ---
PATIENT EATING WITH THE AT THE BEDSIDE. NO PAIN NOTED. NOR SOB NOTED.
--- NOTE | 2019-11-22 18:43 | NUR ---
HAD EATEN DINNER AT THE BEDSIDE.
--- NOTE | 2019-11-22 19:30 | NUR ---
Opening note Received patient, awake, AOx4, no s/sx of distress. Nonlabored breathing on room air. He finished his meal; removed meal tray and took new pitcher of ice water. Updated board and reviewed plan of care.
[2019-11-22 20:00] VITALS: BP_SYST 127
[2019-11-22] MEDS: ATORVASTATIN 20 MG TABLET PO SCH (20:53)
--- NOTE | 2019-11-22 21:09 | NUR ---
medications / fingerstick blood glucose Due medications given, educated on side effects and he verbalized understanding. Fingerstick bgt done w/ result of 300 mg/dL and gave 4u of insulin per sliding scale order.
--- NOTE | 2019-11-22 22:00 | NUR ---
Snack Patient requested a sandwich and it was provided, no further needs. Will continue to monitor.
[2019-11-23 00:30] VITALS: BP_SYST 118
--- NOTE | 2019-11-23 00:30 | NUR ---
V/S Patient resting in bed with lights on, eyes closed. He was momentarily awakened for V/S which were stable. He denies pain. Will continue to monitor, call light w/in reach.
--- NOTE | 2019-11-23 02:30 | NUR ---
Resting Patient is resting in bed, eyes closed and easily aroused. Presently is comfortable, no further requests. Safety precautions in place and call light w/in reach.
--- NOTE | 2019-11-23 04:28 | NUR ---
RN rounds Patient is resting w/ eyes closed. Nonlabored breathing. Safety precautions in place and call light w/in reach.
--- NOTE | 2019-11-23 07:00 | NUR ---
CLOSING NOTE Patient is stable, no s/sx of distress. Fingerstick BGT done w/ result of 97 mg/dL; no coverage. Needs met throughout shift. Will endorse care to incoming nurse.
--- NOTE | 2019-11-23 07:38 | NUR ---
OPENING NOTE Patient resting in the bed. No acute distress. AAO x 4. Denied of pain. Skin warm and dry to touch. No IV access, MD aware. Discussed the safety issue, use call light when needs help, and plan of care, verbally understanding. Safety measure maintained. Bed locked in low position, side rails up. Call light within reached. Will continue to monitor.
[2019-11-23 07:40] VITALS: BP_SYST 126
[2019-11-23] MEDS: TAMSULOSIN HCL 0.4 MG CAP PO SCH ×2 (09:19→20:09)
[2019-11-23] MEDS: ISOSORBIDE MONONITRATE 30 MG TAB.ER.24H PO SCH (09:20)
[2019-11-23] MEDS: hydrALAZINE HCL 25 MG TABLET PO SCH ×2 (09:20→20:08)
[2019-11-23] MEDS: NIFEDIPINE 30 MG TAB.ER.24 PO SCH (09:20)
[2019-11-23] MEDS: CALCITRIOL 0.25 MCG CAPSULE PO SCH (09:20)
[2019-11-23] MEDS: NEPHROVITE, (FOLIC ACID/VITAMIN B COMP W-C 1 TAB) PO SCH (09:20)
[2019-11-23] MEDS: ASPIRIN 81 MG TABLET(ECOTRIN) PO SCH (09:21)
[2019-11-23] MEDS: METOPROLOL SUCCINATE 50 MG TAB.SR.24H (TOPROL XL) PO SCH (09:21)
[2019-11-23] MEDS: ACETAMINOPHEN 325 MG TABLET PO PRN (09:30)
--- NOTE | 2019-11-23 09:32 | NUR ---
TYLENOL GIVEN Patient c/o neck pain 12/05, Tylenol 650mg PO given as ordered. No acute distress. Patient sitting in the bed and watching TV. Safety measure maintained. Call light within reached. Continue to monitor.
--- NOTE | 2019-11-23 10:29 | NUR ---
Case mgt: I faxed the MD orders, hepatitis panel, CXR report indicating no TB, med list to [facility] at fax#[phone]--H called Sherine at the dialysis center [phone] and informed her I was faxing info to her and to call me back adair with chair time. KALEIGH KENNEDY
--- NOTE | 2019-11-23 10:32 | NUR ---
REASSESSED THE PAIN Patient resting in the bed and watching TV. No acute distress. Denied of pain at this time. Safety measure maintained. Call light within reached. Bed locked in low position, side rails up. Continue to monitor.
--- NOTE | 2019-11-23 10:53 | NUR ---
Nutrition Education RD provided medical nutrition therapy on the topics of diabetic/ESRD/HD this morning. Please refer to interdisciplinary teaching record for details.
--- NOTE | 2019-11-23 11:06 | NUR ---
Case mgt: I called [facility]--[phone]--s/w Sherine--she received the faxed info and is waiting to hear from her corporate office on auth from [facility] and also available chair time for tomorrow. Sherine will call me back. I updated Dr. Gibson that insurance is contracted with [facility]-- RN
--- NOTE | 2019-11-23 11:52 | NUR ---
BS=99 No insulin coverage needed per sliding scale. Patient resting in the bed and watching TV. No acute distress. Safety measure maintained. Call light within reached. Continue to monitor.
[2019-11-23 12:00] VITALS: BP_SYST 112
--- NOTE | 2019-11-23 14:07 | NUR ---
SEEN AND EXAMINED BY DR. PURVIS [facility].
--- NOTE | 2019-11-23 14:33 | NUR ---
Case mgt: I called Scott at [facility] again at 1400--she is still waiting for auth from [facility]--I called [facility] --s/w F[employer]um[employer]--[phone]--she is faxing the auth to [facility]--I called Scott back and let her know the auth is being faxed in a few minutes. Scott will call me back with a chair time once she gets the authorization. KALEIGH KENNEDY Addendum: 11/23/19 at 1440 by Laura Delarosa RN Per Scott at [facility], Dr. Serina Burns will be the jewelry enameler that works with [facility]
--- NOTE | 2019-11-23 15:31 | NUR ---
Case mgt: [employer] faxed the hemodialysis auth to [facility] but did not put the truck spotter name, Dr. Serina Burns with [facility], on the authorization. I called Fadumo at [facility], and asked her to correct the authorization and fax it to [facility] so we can get a chair time for pt tomorrow. KALEIGH RN Addendum: 11/23/19 at 1632 by Laura Delarosa RN I called Scott at [facility] again at 1600--she said [employer] still left Dr. Bland's name on the auth and also put Dr. Serina Burns , so Scott is forwarding this auth to her corporate office to see if they will accept it like that. I called [facility] again at 1615 and was told Scott is gone for the day--I gave the nurses' station phone # and said if they get the auth/chair time, please call the unit.
[2019-11-23 16:00] VITALS: BP_SYST 99
--- NOTE | 2019-11-23 16:15 | NUR ---
INFORMED TO PATIENT AND THE NO DIALYSIS CHAIR TIME ARRANGE YET, NOT TO DISCHARGE TODAY.
[2019-11-23] MEDS: INSULIN REGULAR, HUMAN 100 UNITS/ML, 10 ML VIAL (humuLIN R) SUBCUT PRN ×2 (17:43→20:14)
--- NOTE | 2019-11-23 17:43 | NUR ---
EE=192 Humulin R insulin 2 units given per sliding scale.
--- NOTE | 2019-11-23 18:50 | NUR ---
CLOSING NOTE Patient resting in the bed. No acute distress. PRN pain med given as needed. Skin warm and dry to touch. All needs met. Safety measure maintained. Bed locked in low position, side rails up. Call light within reached. Will endorse to night nurse.
--- NOTE | 2019-11-23 19:36 | NUR ---
INITIAL NOTES Received handoff report from offgoing nurse BRIAN at the bedside. Patient is AAOx4, resting comfortably in chair at the bedside, currently watching television. No SOB, no acute distress, no complaints of pain at this time. Call light is within reach. Encouraged patient to call for assistance. Will continue with plan of care.
[2019-11-23 20:00] VITALS: BP_SYST 129
[2019-11-23] MEDS: ATORVASTATIN 20 MG TABLET PO SCH (20:09)
--- NOTE | 2019-11-23 21:00 | NUR ---
Patient ambulating in the room. Steady gait. No assistance needed. Provided patient with jello, pudding, cranberry juice, and apple juice per patient request. Patient has positive affect. Stated that he is currently celebrating Chan Thursday, and would love to see his soon. Encouraged patient to call for assistance.
--- NOTE | 2019-11-23 23:12 | NUR ---
Patient resting comfortably, sitting at the edge of the bed. Currently texting on his cellphone to his . No SOB, no acute distress, no complaints of pain at this time. Encouraged patient to call for assistance.
[2019-11-24] VITALS: BP_SYST 132
--- NOTE | 2019-11-24 01:00 | NUR ---
Patient resting comfortably in bed, eyes closed. No SOB, no acute distress. No complaints of pain at this time. Bed is locked, lowest position, 2x side rails up, bed alarm is on. Call light within reach.
--- NOTE | 2019-11-24 03:00 | NUR ---
Patient ambulated to the restroom independently without assistance. Now back in bed, resting comfortably. Call light within reach. Encouraged patient to call for assistance.
--- NOTE | 2019-11-24 05:03 | NUR ---
Patient resting comfortably in bed, eyes closed. Breathing even and unlabored with visible chest rise and fall noted. No SOB, no acute distress, no signs of pain or facial grimacing noted. Call light within reach.
--- NOTE | 2019-11-24 06:44 | NUR ---
Closing Notes Patient is resting comfortably in bed, AAOx4. No SOB, no acute distress, no complaint of pain at this time. Bed is locked, lowest position, 2x side rails up, bed alarm is on. Call light is within reach. Fall and safety precautions maintained. All needs have been met during this shift. Will endorse care to oncoming dayshift nurse.
--- NOTE | 2019-11-24 07:24 | NUR ---
OPENING NOTE Patient resting in the bed. No acute distress. AAO x 4. Denied of pain. Skin warm and dry to touch. No IV access, MD aware. Perma cath intact to right upper chest, covered with clean and dry dressing, no bleeding noted. Discussed the safety issue, use call light when needs help, and plan of care, verbally understanding. Safety measure maintained. Bed locked in low position, side rails up. Refused bed alarm, risk and benefit explained, verbally understanding. Call light within reached. Will continue to monitor.
[2019-11-24 07:50] VITALS: BP_SYST 134
[2019-11-24 07:51] LABS: BASOPHILS % (AUTO) 0.6 % (0.0-2.0); EOSINOPHILS # (AUTO) 0.4 K/uL (0.0-0.4); HEMATOCRIT 35.3 % (36-54); HEMOGLOBIN 11.1 g/dL (14.0-18.0); LYMPHOCYTES # (AUTO) 2.1 K/uL (1.0-5.5); LYMPHOCYTES % (AUTO) 27.1 % (20.5-51.5); MEAN CORPUSCULAR HEMOGLOBIN 28 pg (27-31); MEAN CORPUSCULAR HGB CONC 32 % (32-36); MEAN CORPUSCULAR VOLUME 89 fL (79.0-98.0); MONOCYTES # (AUTO) 0.8 K/uL (0.0-1.0); MONOCYTES % (AUTO) 10.8 % (1.7-9.3); NEUTROPHILS # (AUTO) 4.4 K/uL (1.8-7.7); NEUTROPHILS % (AUTO) 56.5 % (40.0-70.0); PLATELET COUNT (AUTO) 199 K/uL (130-430); RED BLOOD CELL COUNT(AUTO) 3.97 MIL/uL (4.2-6.2); RED CELL DISTRIBUTION WIDTH 13.3 % (9.0-15.0); WHITE BLOOD COUNT (AUTO) 7.9 K/uL (4.8-10.8)
[2019-11-24 07:52] LABS: CALCIUM 8.6 mg/dL (8.4-11.0); CREATININE 4.45 mg/dL (0.55-1.30); POTASSIUM 4.2 mmol/L (3.5-5.1)
[2019-11-24] MEDS: ASPIRIN 81 MG TABLET(ECOTRIN) PO SCH (08:50)
[2019-11-24] MEDS: NIFEDIPINE 30 MG TAB.ER.24 PO SCH (08:50)
[2019-11-24] MEDS: hydrALAZINE HCL 25 MG TABLET PO SCH (08:50)
[2019-11-24] MEDS: METOPROLOL SUCCINATE 50 MG TAB.SR.24H (TOPROL XL) PO SCH (08:51)
[2019-11-24] MEDS: ISOSORBIDE MONONITRATE 30 MG TAB.ER.24H PO SCH (08:51)
[2019-11-24] MEDS: CALCITRIOL 0.25 MCG CAPSULE PO SCH (08:51)
[2019-11-24] MEDS: NEPHROVITE, (FOLIC ACID/VITAMIN B COMP W-C 1 TAB) PO SCH (08:51)
[2019-11-24] MEDS: TAMSULOSIN HCL 0.4 MG CAP PO SCH (08:52)
--- NOTE | 2019-11-24 08:55 | NUR ---
AM SCHEDULE MED GIVEN, TOLERATED WELL.
--- NOTE | 2019-11-24 09:27 | NUR ---
HEMODIALYSIS NURSE ARRIVED AND AWARE BLOOD PRESSURE MEDICATION GIVEN, STATED THAT WILL DO ANOTHER PATIENT FIRST THEN COME BACK IN THE AFTERNOON.
--- NOTE | 2019-11-24 11:44 | NUR ---
TY=486 No insulin coverage needed per sliding scale. Patient siting in the chair next to the bed and watching TV. No acute distress. Safety measure maintained. Call light within reached. Continue to monitor.
[2019-11-24 12:00] VITALS: BP_SYST 140
--- NOTE | 2019-11-24 12:44 | NUR ---
HEMODIALYSIS STARTED Patient in the bed and started hemodialysis. Dialysis nurse at bedside. Call light within reached. Continue to monitor.
--- NOTE | 2019-11-24 14:16 | NUR ---
DC PLANNING Received call from Peña @ [facility], pt was approved, chair time //Sat @ 1345. Has to go tomorrow 11/25 around noon to sign paperwork. Will start first HD Sat @ 1345. Informed pt's nurse & Charge Nurse. Nurse calling to informed Dr Barba & to get dc order for today. Informed pt @ bedside, gave him address & ph. Agreeable w plan. Asked if any transportation avail. Pt states will be able to drive @ first, then he can drive self if no transport avail. Called & spoke w Deysi @ [employer] & no transportation avail from insurance. Called & spoke w pt's Nicole, informed & she is agreeable. Informed no transportation avail by insurance. States she will be taking pt until goes back to work then pt will be able to drive self. [facility] ph [phone] [facility] [id number] //Sat chair time 1:45pm
[2019-11-24] MEDS ORDERED: HEPARIN SODIUM,PORCINE 5000 UNITS/ML VIAL MC ONE (14:18)
--- NOTE | 2019-11-24 14:35 | NUR ---
ONGOING HEMODIALYSIS Patient resting in the bed, ongoing hemodialysis, no acute distress. Dialysis nurse at bedside. Safety measure maintained. Call light within reached. Continue to monitor.
[2019-11-24 15:50] VITALS: BP_SYST 126
--- NOTE | 2019-11-24 15:50 | NUR ---
HEMODIALYSIS COMPLETED Report received from KATINA Coello RN at bedside, 1300ml out VS stable. Patient resting in the bed. No acute distress. Safety measure maintained. Call light within reached. Continue to monitor.
[2019-11-24 16:49] VITALS: BP_SYST 126
--- NOTE | 2019-11-24 17:18 | NUR ---
D/C Patient Patient given medication reconciliation form and D/C instructions. Exit Care provided. Patient verbalized understanding. MD discussed with patient the results and treatment provided. Ambulatory with steady gait for discharge to home. Patient in stable condition, ID band removed. Patient educated hemodialysis scheduled date and chair time, tomorrow to sign around noon time to sign paperwork. Follow up with PCP in 1 week, verbally understanding. E-prescription sent to [facility], Nicole stated will molded goods spot picker there. All belongings sent with patient.
== END 2019-11-24 17:18 | disposition home or self-care (01) | DRG 673 ==
LOC: SED 12:20 → STU 16:19 → SMU 11-20 12:52
PROVIDERS: ADMIT Internal Medicine; ATTEND Internal Medicine
PROC: 02HV33Z Insertion of Infusion Device into Superior Vena Cava, Percutaneous Approach (ICD-10-PCS; principal; 2019-11-16 17:30)
PROC: 5A1D70Z Performance of Urinary Filtration, Intermittent, Less than 6 Hours Per Day (ICD-10-PCS; 2019-11-17)
PROC: 0JH63XZ Insertion of Tunneled Vascular Access Device into Chest Subcutaneous Tissue and Fascia, Percutaneous Approach (ICD-10-PCS; 2019-11-19)
PROC: B548ZZA Ultrasonography of Superior Vena Cava, Guidance (ICD-10-PCS; 2019-11-19)
PROC: 02PYX3Z Removal of Infusion Device from Great Vessel, External Approach (ICD-10-PCS; 2019-11-19)
PROC: 02HV33Z Insertion of Infusion Device into Superior Vena Cava, Percutaneous Approach (ICD-10-PCS; 2019-11-19)
PROC: B548ZZA Ultrasonography of Superior Vena Cava, Guidance (ICD-10-PCS; 2019-11-19)
PROC: 5A1D70Z Performance of Urinary Filtration, Intermittent, Less than 6 Hours Per Day (ICD-10-PCS; 2019-11-19)
PROC: 5A1D70Z Performance of Urinary Filtration, Intermittent, Less than 6 Hours Per Day (ICD-10-PCS; 2019-11-22)
PROC: 5A1D70Z Performance of Urinary Filtration, Intermittent, Less than 6 Hours Per Day (ICD-10-PCS; 2019-11-24)
DX: I12.0 Hypertensive chronic kidney disease with stage 5 chronic kidney disease or end stage renal disease (principal); N18.6 End stage renal disease; N17.9 Acute kidney failure, unspecified; E44.1 Mild protein-calorie malnutrition; E66.9 Obesity, unspecified; E11.22 Type 2 diabetes mellitus with diabetic chronic kidney disease; E78.5 Hyperlipidemia, unspecified; E87.5 Hyperkalemia; N40.0 Benign prostatic hyperplasia without lower urinary tract symptoms; D63.8 Anemia in other chronic diseases classified elsewhere; Z79.02 Long term (current) use of antithrombotics/antiplatelets; Z79.82 Long term (current) use of aspirin; Z86.73 Personal history of transient ischemic attack (TIA), and cerebral infarction without residual deficits; Z68.29 Body mass index [BMI] 29.0-29.9, adult; Z79.899 Other long term (current) drug therapy; Z88.0 Allergy status to penicillin
CPT/HCPCS: 36415; 71045; 72040-TC; 76000; 80048; 80053; 80061; 81000-TC; 82306; 82962; 83036; 83540-TC; 83550-TC; 83880; 83970; 84100-TC; 84153; 84439; 84443-TC; 84484; 85025; 85610-TC; 85730-TC; 86706; 86803; 87081; 87340; 90935; 90937; 93005; 93017; 93306; 96374; 99285; A9500; C1750; C1751; G0378; J1644; J1815; J2001; J2250; J2704; J2785; J3490; J7030

== ENCOUNTER 2020-04-23 11:38 | Outpatient (CLI) | payer OTHER ==
[~2020-04-23 11:38] MED LIST changes: +CALC0.258 PO; -CEFAZOLIN 2 GM IVPB PREMIX 50 ML IV ONE; -CLOP75TA2 PO; +GLIP5TAB13 PO; -HEPARIN SODIUM,PORCINE 5000 UNITS/ML VIAL SUBCUT ONE; -LIDOCAINE 1% 10 MG/ML, 20 ML MDV INJ ONE; +LIP20 PO; +METO50TA7 PO; -MIDAZOLAM HCL 5 MG/5 ML VIAL IVP ONE; +NEPH PO; -NS 1000 ML IV.SOLN IV ONE; -NS 50 ML BAG IV ONE; -PROPOFOL 200MG/ 20ML VIAL (DIPRIVAN) IV ONE; +PROXL60 PO; -WATER FOR IRRIGATION,STERILE 1,000 ML IRRIG.SOLN IR ONE; -fentaNYL CITRATE/PF 100 MCG/2 ML AMP IVP ONE
== END 2020-04-23 20:19 | disposition home or self-care (01) ==
LOC: SRD 11:38
PROVIDERS: ATTEND Internal Medicine
DX: M47.814 Spondylosis without myelopathy or radiculopathy, thoracic region (principal); R76.11 Nonspecific reaction to tuberculin skin test without active tuberculosis; M81.0 Age-related osteoporosis without current pathological fracture
CPT/HCPCS: 71046-TC

== ENCOUNTER 2021-10-27 06:49 | Outpatient (CLI) | payer OTHER ==
[~2021-10-27 06:49] MED LIST changes: -ASPI-1153 PO; +ASPI-1393 PO; -ISOS30TA6 PO; +ISOS30TA85 PO
[2021-10-27 09:00] LABS: BASOPHILS % (AUTO) 0.5 % (0.0-2.0); EOSINOPHILS # (AUTO) 0.4 K/uL (0.0-0.4); EOSINOPHILS % (AUTO) 4.5 % (0.0-4.0); HEMATOCRIT 37.5 % (36-54); HEMOGLOBIN 12.2 g/dL (14.0-18.0); LYMPHOCYTES # (AUTO) 2.1 K/uL (1.0-5.5); LYMPHOCYTES % (AUTO) 27.9 % (20.5-51.5); MEAN CORPUSCULAR HEMOGLOBIN 28 pg (27-31); MEAN CORPUSCULAR HGB CONC 33 % (32-36); MEAN CORPUSCULAR VOLUME 87 fL (79.0-98.0); MONOCYTES # (AUTO) 0.6 K/uL (0.0-1.0); NEUTROPHILS # (AUTO) 4.6 K/uL (1.8-7.7); NEUTROPHILS % (AUTO) 59.1 % (40.0-70.0); PLATELET COUNT (AUTO) 191 K/uL (130-430); RED BLOOD CELL COUNT(AUTO) 4.34 MIL/uL (4.2-6.2); RED CELL DISTRIBUTION WIDTH 13.9 % (9.0-15.0); WHITE BLOOD COUNT (AUTO) 7.7 K/uL (4.8-10.8)
[2021-10-27 09:04] LABS: ALBUMIN 3.5 g/dL (3.4-4.8); CALCIUM 8.6 mg/dL (8.4-11.0); CREATININE 5.73 mg/dL (0.55-1.30); POTASSIUM 3.9 mmol/L (3.5-5.1); THYROID STIMULATING HORMONE 1.47 uIu/mL (0.36-3.74); TOTAL BILIRUBIN 0.2 mg/dL (0.0-1.0)
[2021-10-28 17:20] LABS: PROSTATE SPECIFIC AG 49.5 ng/mL (0.0-4.0)
[2021-10-30 10:34] LABS: HEMOGLOBIN A1C 6.3 % (4.8-5.6)
== END 2021-10-27 20:29 | disposition home or self-care (01) ==
LOC: SLB 06:49
PROVIDERS: ATTEND Internal Medicine
DX: E11.65 Type 2 diabetes mellitus with hyperglycemia (principal); E11.21 Type 2 diabetes mellitus with diabetic nephropathy; E78.5 Hyperlipidemia, unspecified; E56.9 Vitamin deficiency, unspecified; R97.20 Elevated prostate specific antigen [PSA]; R76.11 Nonspecific reaction to tuberculin skin test without active tuberculosis; I70.0 Atherosclerosis of aorta
CPT/HCPCS: 36415; 71046-TC; 80053; 80061; 82306; 82607; 83036; 84153; 84443; 85025

== ENCOUNTER 2022-11-19 09:02 | Outpatient (CLI) | payer OTHER | END 2022-11-19 18:45 | disposition home or self-care (01) | LOC: SRD 09:02 | PROVIDERS: ATTEND Internal Medicine | DX: R06.00 Dyspnea, unspecified (principal); I70.0 Atherosclerosis of aorta; I51.7 Cardiomegaly | CPT/HCPCS: 71045 ==

== ENCOUNTER 2023-03-07 08:21 | Outpatient (CLI) | payer OTHER ==
[2023-03-07 10:59] LABS: BASOPHILS # (AUTO) 0.1 K/uL (0.0-0.2); BASOPHILS % (AUTO) 0.7 % (0.0-2.0); EOSINOPHILS # (AUTO) 0.2 K/uL (0.0-0.4); HEMATOCRIT 38.2 % (36-54); HEMOGLOBIN 12.2 g/dL (14.0-18.0); LYMPHOCYTES # (AUTO) 2.3 K/uL (1.0-5.5); LYMPHOCYTES % (AUTO) 31.5 % (20.5-51.5); MEAN CORPUSCULAR HEMOGLOBIN 28 pg (27-31); MEAN CORPUSCULAR HGB CONC 32 % (32-36); MEAN CORPUSCULAR VOLUME 89 fL (79.0-98.0); MONOCYTES # (AUTO) 0.7 K/uL (0.0-1.0); MONOCYTES % (AUTO) 10.1 % (1.7-9.3); NEUTROPHILS % (AUTO) 54.7 % (40.0-70.0); PLATELET COUNT (AUTO) 176 K/uL (130-430); RED BLOOD CELL COUNT(AUTO) 4.32 MIL/uL (4.2-6.2); RED CELL DISTRIBUTION WIDTH 16.2 % (9.0-15.0); WHITE BLOOD COUNT (AUTO) 7.4 K/uL (4.8-10.8)
[2023-03-07 11:55] LABS: ALBUMIN 3.6 g/dL (3.4-4.8); CALCIUM 8.9 mg/dL (8.4-11.0); THYROID STIMULATING HORMONE 0.91 uIu/mL (0.34-4.82); TOTAL BILIRUBIN 0.4 mg/dL (0.0-1.0)
[2023-03-07 12:27] LABS: CREATININE 8.21 mg/dL (0.55-1.30)
[2023-03-09 08:06] LABS: PROSTATE SPECIFIC AG 47.1 ng/mL (0.0-4.0)
== END 2023-03-07 19:01 | disposition home or self-care (01) ==
LOC: SLB 08:21
PROVIDERS: ATTEND Internal Medicine
DX: E11.65 Type 2 diabetes mellitus with hyperglycemia (principal); E78.5 Hyperlipidemia, unspecified; E55.9 Vitamin D deficiency, unspecified; E56.9 Vitamin deficiency, unspecified
CPT/HCPCS: 36415; 80053; 80061; 82306; 82607; 83037; 84153; 84443; 85025

== ENCOUNTER 2023-07-02 09:11 | Outpatient (CLI) | payer OTHER ==
[~2023-07-02 09:11] MED LIST changes: +NIFE-129 PO; -PROXL60 PO
[2023-07-02 09:56] LABS: BASOPHILS # (AUTO) 0.1 K/uL (0.0-0.2); BASOPHILS % (AUTO) 0.8 % (0.0-2.0); EOSINOPHILS # (AUTO) 0.2 K/uL (0.0-0.4); EOSINOPHILS % (AUTO) 2.6 % (0.0-4.0); HEMOGLOBIN 12.7 g/dL (14.0-18.0); LYMPHOCYTES # (AUTO) 1.7 K/uL (1.0-5.5); LYMPHOCYTES % (AUTO) 23.5 % (20.5-51.5); MEAN CORPUSCULAR HEMOGLOBIN 28 pg (27-31); MEAN CORPUSCULAR HGB CONC 32 % (32-36); MEAN CORPUSCULAR VOLUME 89 fL (79.0-98.0); MONOCYTES # (AUTO) 0.7 K/uL (0.0-1.0); NEUTROPHILS # (AUTO) 4.6 K/uL (1.8-7.7); NEUTROPHILS % (AUTO) 64.1 % (40.0-70.0); PLATELET COUNT (AUTO) 193 K/uL (130-430); RED BLOOD CELL COUNT(AUTO) 4.51 MIL/uL (4.2-6.2); RED CELL DISTRIBUTION WIDTH 17.9 % (9.0-15.0); WHITE BLOOD COUNT (AUTO) 7.2 K/uL (4.8-10.8)
[2023-07-02 10:53] LABS: ALBUMIN 3.7 g/dL (3.4-4.8); CALCIUM 8.6 mg/dL (8.4-11.0); POTASSIUM 4.7 mmol/L (3.5-5.1); THYROID STIMULATING HORMONE 0.99 uIu/mL (0.34-4.82); TOTAL BILIRUBIN 0.4 mg/dL (0.0-1.0); TOTAL PROTEIN, SERUM 7.8 g/dL (6.4-8.3)
[2023-07-02 10:57] LABS: CREATININE 9.85 mg/dL (0.55-1.30)
[2023-07-02 14:03] LABS: HEMOGLOBIN A1C 5.87 % (<5.7)
[2023-07-03 07:06] LABS: PROSTATE SPECIFIC AG 77.4 ng/mL (0.0-4.0)
== END 2023-07-02 19:42 | disposition home or self-care (01) ==
LOC: SLB 09:11
PROVIDERS: ATTEND Internal Medicine
DX: R06.02 Shortness of breath (principal); E78.5 Hyperlipidemia, unspecified; E56.9 Vitamin deficiency, unspecified; I10 Essential (primary) hypertension; E11.65 Type 2 diabetes mellitus with hyperglycemia; N40.1 Benign prostatic hyperplasia with lower urinary tract symptoms; E55.9 Vitamin D deficiency, unspecified
CPT/HCPCS: 36415; 71046-TC; 80053; 80061; 82306; 82607; 83037; 83970; 84153; 84443; 85025

== ENCOUNTER 2023-11-21 07:24 | Outpatient (CLI) | payer OTHER ==
[2023-11-21 08:05] LABS: BASOPHILS # (AUTO) 0.1 K/uL (0.0-0.2); BASOPHILS % (AUTO) 0.8 % (0.0-2.0); EOSINOPHILS # (AUTO) 0.2 K/uL (0.0-0.4); EOSINOPHILS % (AUTO) 2.5 % (0.0-4.0); HEMATOCRIT 33.5 % (36-54); HEMOGLOBIN 10.9 g/dL (14.0-18.0); LYMPHOCYTES % (AUTO) 14.3 % (20.5-51.5); MEAN CORPUSCULAR HEMOGLOBIN 29 pg (27-31); MEAN CORPUSCULAR HGB CONC 33 % (32-36); MEAN CORPUSCULAR VOLUME 90 fL (79.0-98.0); MONOCYTES # (AUTO) 0.5 K/uL (0.0-1.0); MONOCYTES % (AUTO) 6.5 % (1.7-9.3); NEUTROPHILS # (AUTO) 5.3 K/uL (1.8-7.7); NEUTROPHILS % (AUTO) 75.9 % (40.0-70.0); PLATELET COUNT (AUTO) 171 K/uL (130-430); RED BLOOD CELL COUNT(AUTO) 3.71 MIL/uL (4.2-6.2); RED CELL DISTRIBUTION WIDTH 16.5 % (9.0-15.0)
[2023-11-21 08:29] LABS: HEMOGLOBIN A1C 5.53 % (<5.7)
[2023-11-21 09:08] LABS: ALBUMIN 3.6 g/dL (3.4-4.8); CALCIUM 9.6 mg/dL (8.4-11.0); CREATININE 7.49 mg/dL (0.55-1.30); POTASSIUM 5.2 mmol/L (3.5-5.1); THYROID STIMULATING HORMONE 1.39 uIu/mL (0.34-4.82); TOTAL BILIRUBIN 0.3 mg/dL (0.0-1.0); TOTAL PROTEIN, SERUM 7.7 g/dL (6.4-8.3)
== END 2023-11-21 19:26 | disposition home or self-care (01) ==
LOC: SLB 07:24
PROVIDERS: ATTEND Internal Medicine
DX: E11.65 Type 2 diabetes mellitus with hyperglycemia (principal); E78.5 Hyperlipidemia, unspecified; C61 Malignant neoplasm of prostate; I12.0 Hypertensive chronic kidney disease with stage 5 chronic kidney disease or end stage renal disease; E11.22 Type 2 diabetes mellitus with diabetic chronic kidney disease; N18.6 End stage renal disease; D63.1 Anemia in chronic kidney disease; E56.9 Vitamin deficiency, unspecified
CPT/HCPCS: 36415; 80053; 80061; 83037; 84153; 84443; 85025

== ENCOUNTER 2024-01-21 11:16 | Outpatient (CLI) | payer OTHER ==
[~2024-01-21 11:16] MED LIST changes: -GLIP5TAB13 PO; +GLIP5TAB23 PO; -HYDR-4039 PO; +HYDR50TA44 PO
== END 2024-01-21 18:08 | disposition home or self-care (01) ==
LOC: SRD 11:16
PROVIDERS: ATTEND Nurse Practitioner Family
DX: J98.11 Atelectasis (principal); J90 Pleural effusion, not elsewhere classified; R06.02 Shortness of breath; R09.89 Other specified symptoms and signs involving the circulatory and respiratory systems; I51.7 Cardiomegaly; J81.1 Chronic pulmonary edema
CPT/HCPCS: 71046